=== PATIENT | female | born 1950 | race Caucasian/White ===

== ENCOUNTER 2016-07-17 23:55 | Emergency (ER) | payer OTHER ==
--- NOTE | 2016-07-18 00:37 | EDPHY ---
H & P Stated Complaint: vaginal bleeding Time Seen by Provider: 07/18/16 00:09 HPI/ROS: HPI The patient presents with vaginal bleeding which has been present for the last several hours, since approximately 3:00 p.m.. This began slowly and has been intermittent ever since. It is red blood without any clots. It is recently been associated with mild lower abdominal discomfort. She has not had any recent vaginal discharge or irritation. She is not on any blood thinners or aspirin. She had a total abdominal hysterectomy with bilateral salpingo- oophorectomy 21 years ago. She has no prior history of vaginal bleeding. REVIEW OF SYSTEMS Constitutional: No fever, no chills. Cardiovascular: No chest pain, no palpitations. Respiratory: No cough, no shortness of breath. Gastrointestinal: Mild abdominal discomfort Genitourinary: No hematuria. Musculoskeletal: No back pain. Skin: No rashes. Neurological: No headache. PMHx: Hypertension, history of PE not on anticoagulation Soc Hx: Housed independently PHYSICAL General Appearance: Alert, no distress Eyes: Pupils equal and round no pallor or injection ENT, Mouth: Mucous membranes moist Respiratory: There are no retractions, lungs are clear to auscultation Cardiovascular: Regular rate and rhythm Gastrointestinal: Abdomen is soft and non-tender, no masses, bowel sounds normal Pelvic exam reveals no active bleeding with mild inflammation of the vaginal vault Neurological: A&O, moves all extremities Skin: Warm and dry, no rashes Musculoskeletal: Neck is supple non tender Extremities: symmetrical, full range of motion Psychiatric: Patient is oriented X 3, there is no agitation Source: Patient Exam Limitations: No limitations - Personal History Current Tetanus/Diphtheria Vaccine: Yes Tetanus Vaccine Date: 2010 - Medical/Surgical History Hx Asthma: No Hx Chronic Respiratory Disease: No Hx Diabetes: Yes Hx Cardiac Disease: No Hx Renal Disease: Yes Hx Cirrhosis: No Hx Alcoholism: No Hx HIV/AIDS: No Hx Splenectomy or Spleen Trauma: No Other PMH: porphyria, hypoglycemia, pre-diabetes, polymylasia, GERD, HTN, SOB, CPAP at night, depression, hypothyroidism, thyroid sx, PE's, SDH. - Social History Smoking Status: Former smoker Constitutional: Initial Vital Signs Temperature (C) 36.9 C 07/17/16 23:56 Heart Rate 75 07/17/16 23:56 Respiratory Rate 16 07/17/16 23:56 Blood Pressure 160/104 H 07/17/16 23:56 O2 Sat (%) 98 07/17/16 23:56 O2 Delivery Mode Room Air Allergies/Adverse Reactions: Cephalosporins Allergy (Intermediate, Verified 01/15/16 09:58) Rash Penicillins Allergy (Intermediate, Verified 01/15/16 09:58) Rash atorvastatin Allergy (Verified 01/15/16 09:58) Home Medications: Medication Instructions Recorded Cetirizine [ZyrTEC 10 mg (*)] 10 mg PO DAILY 11/07/15 DULoxetine [Cymbalta 60 MG (*)] 60 mg PO DAILY 11/07/15 Diazepam [Valium 5 MG (*)] 5 mg PO SUTUTH@11/07/15 Hydrochlorothiazide [HCTZ (*)] 12.5 mg PO DAILY 11/07/15 Levothyroxine [Synthroid 88 mcg 88 mcg PO SUTUWETHFRSA@06 11/07/15 (*)] Metoprolol Succinate Xr [Toprol Xl 25 mg PO DAILY PRN 11/07/15 25 mg (*)] Omeprazole [Prilosec 20 mg] 40 mg PO DAILY 11/07/15 Valsartan [Diovan (*)] 160 mg PO DAILY 11/07/15 Cholecalciferol Vit D3 [Vitamin D3 4,000 units PO DAILY 01/15/16 (*)] Herbals/Supplements -Info Only 1 ea PO DAILY 01/15/16 Memantine HCl [Namenda 5 mg (*)] 5 mg PO HS 01/15/16 Vitamin B Complex [B Complex] 1 each PO DAILY 01/15/16 Calcium Carbonate [Oyster Shell 500 mg PO BID 02/08/16 Calcium 500 mg (*)] Fluticasone Hfa 220 Mcg [Flovent 2 puffs IH BID 02/08/16 220 MCG Hfa MDI (*)] LORazepam [Ativan (*)] 0.5 mg PO Q4 PRN 02/08/16 Nitrofurantoin Macrobid [Macrobid] 100 mg PO BID #14 cap 07/18/16 Medical Decision Making Differential Diagnosis: This is a 66-year-old female with history of hypertension, GERD, PE though not on anticoagulation, subdural hemorrhage who presents from home with 1 day of vaginal bleeding. Hemodynamics are stable. Pelvic exam reveals some slightly erythematous mucosa with no active bleeding. Differential diagnosis includes hemorrhagic cystitis, vaginitis, vaginal mass. In the emergency room, UA was checked which does show signs of infection. Given that there is some diagnostic uncertainty, I will treat as urinary tract infection and monitor symptoms. 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 Trichomonas has returned as negative. I am still awaiting [place] and bacterial vaginosis testing. I have a low suspicion for either of these. Because of her lower abdominal discomfort, I have advised her to monitor her symptoms and if she has tenderness or increased pain she should return to the emergency room for a CT scan. I have offered her imaging tonight, however she would like to wait before pursuing this. - Data Points Laboratory Results: Laboratory Results 07/18/16 00:45 07/18/16 00:45 07/18/16 07/18/16 07/18/16 01:00 00:45 00:45 WBC 5.30 10^3/uL 10^3/uL (3.80-9.50) RBC 3.86 10^6/uL L 10^6/uL (4.18-5.33) Hgb 12.6 g/dL g/dL (12.6-16.3) Hct 34.8 % L % (38.0-47.0) MCV 90.2 fL fL (81.5-99.8) MCH 32.6 pg pg (27.9-34.1) MCHC 36.2 g/dL g/dL (32.4-36.7) RDW 12.6 % % (11.5-15.2) Plt Count 188 10^3/uL 10^3/uL (150-400) MPV 10.6 fL fL (8.7-11.7) Neut % (Auto) 38.6 % L % (39.3-74.2) Lymph % (Auto) 48.3 % H % (15.0-45.0) [place] % (Auto) 8.3 % % (4.5-13.0) Eos % (Auto) 3.8 % % (0.6-7.6) Baso % (Auto) 0.8 % % (0.3-1.7) Nucleat RBC Rel Count 0.0 % % (0.0-0.2) Absolute Neuts (auto) 2.05 10^3/uL 10^3/uL (1.70-6.50) Absolute Lymphs (auto) 2.56 10^3/uL 10^3/uL (1.00-3.00) Absolute Monos (auto) 0.44 10^3/uL 10^3/uL (0.30-0.80) Absolute Eos (auto) 0.20 10^3/uL 10^3/uL (0.03-0.40) Absolute Basos (auto) 0.04 10^3/uL 10^3/uL (0.02-0.10) Absolute Nucleated RBC 0.00 10^3/uL 10^3/uL (0-0.01) Immature Gran % 0.2 % % (0.0-1.1) Immature Gran # 0.01 10^3/uL 10^3/uL (0.00-0.10) Sodium 139 mEq/L mEq/L (134-144) Potassium 3.5 mEq/L mEq/L (3.5-5.2) Chloride 107 mEq/L mEq/L (97-110) Carbon Dioxide 20 mEq/l L mEq/l (22-31) Anion Gap 12 mEq/L mEq/L (8-16) BUN 26 mg/dL H mg/dL (7-23) Creatinine 1.1 mg/dL H mg/dL (0.6-1.0) Estimated GFR 50 Glucose 116 mg/dL H mg/dL (70-100) Calcium 9.3 mg/dL mg/dL (8.5-10.4) Total Bilirubin 0.5 mg/dL mg/dL (0.1-1.4) Conjugated Bilirubin 0.4 mg/dL mg/dL (0.0-0.5) Unconjugated Bilirubin 0.1 mg/dL mg/dL (0.0-1.1) AST 32 IU/L IU/L (14-46) ALT 33 IU/L IU/L (9-52) Alkaline Phosphatase 65 IU/L IU/L (38-126) Total Protein 6.3 g/dL g/dL (6.3-8.2) Albumin 4.1 g/dL g/dL (3.5-5.0) Urine Color YELLOW Urine Appearance HAZY Urine pH 5.0 (5.0-7.5) Ur Specific [employer] 1.015 (1.002-1.030) Urine Protein NEGATIVE (NEGATIVE) Urine Ketones NEGATIVE (NEGATIVE) Urine Blood 3+ H (NEGATIVE) Urine Nitrate NEGATIVE (NEGATIVE) Urine Bilirubin NEGATIVE (NEGATIVE) Urine Urobilinogen NEGATIVE EU EU (0.2-1.0) Ur Leukocyte Esterase 3+ H (NEGATIVE) Urine RBC 3-5 /hpf H /hpf (0-3) Urine WBC 15-25 /hpf H /hpf (0-3) Ur Epithelial Cells TRACE /lpf /lpf (NONE-1+) Urine Bacteria 1+ /hpf H /hpf (NONE SEEN) Hyaline Casts 1-5 /lpf /lpf (0-1) Urine Mucus TRACE /lpf /lpf (NONE-1+) Urine Glucose NEGATIVE (NEGATIVE) Trichomonas (Wet Prep) [place] species DNA C.trachomatis RNA (TMA) Gardnerella DNA Probe N.gonorrhoeae RNA (TMA) Trichomonas DNA Probe 07/18/16 07/18/16 00:30 00:30 WBC RBC Hgb Hct MCV MCH MCHC RDW Plt Count MPV Neut % (Auto) Lymph % (Auto) [place] % (Auto) Eos % (Auto) Baso % (Auto) Nucleat RBC Rel Count Absolute Neuts (auto) Absolute Lymphs (auto) Absolute Monos (auto) Absolute Eos (auto) Absolute Basos (auto) Absolute Nucleated RBC Immature Gran % Immature Gran # Sodium Potassium Chloride Carbon Dioxide Anion Gap BUN Creatinine Estimated GFR Glucose Calcium Total Bilirubin Conjugated Bilirubin Unconjugated Bilirubin AST ALT Alkaline Phosphatase Total Protein Albumin Urine Color Urine Appearance Urine pH Ur Specific [employer] Urine Protein Urine Ketones Urine Blood Urine Nitrate Urine Bilirubin Urine Urobilinogen Ur Leukocyte Esterase Urine RBC Urine WBC Ur Epithelial Cells Urine Bacteria Hyaline Casts Urine Mucus Urine Glucose Trichomonas (Wet Prep) NO TRICHOMONAS [place] species DNA Pending C.trachomatis RNA (TMA) Pending Gardnerella DNA Probe Pending N.gonorrhoeae RNA (TMA) Pending Trichomonas DNA Probe Pending Departure - Departure Disposition: Home, Routine, Self-Care Clinical Impression: Vaginal bleeding UTI (urinary tract infection) Qualifiers: Urinary tract infection type: acute cystitis Hematuria presence: with hematuria Qualified Code(s): N30.01 - Acute cystitis with hematuria Condition: Good Instructions: Urinary Tract Infection in Women (ED) Additional Instructions: Please return to the emergency room if your worse in any way. If you continue to have any pain in her abdomen you should return for recheck. Please take the antibiotic. If your vaginal bleeding continues next week, despite the antibiotic, please call for an appointment with the OBGYN I have referred you to. Referrals: Leonarda Santana MD [Primary Care Provider] - As per Instructions Rita Singh MD [Medical Doctor] - As per Instructions Prescriptions: Nitrofurantoin Macrobid [Macrobid] 100 mg PO BID #14 cap
[2016-07-18 01:03] VITALS: O2SAT 95
[2016-07-18 01:04] LABS: % IMMATURE GRANULYOCYTES 0.2 % (0.0-1.1); ABSOLUTE IMMATURE GRANULOCYTES 0.01 10^3/uL (0.00-0.10); ADD DIFF? NO; ADD MORPH? NO; ADD SCAN? NO; ATYPICAL LYMPHOCYTE FLAG 10 (0-99); FRAGMENT RBC FLAG 0 (0-99); HEMATOCRIT 34.8 % (38.0-47.0); HEMOGLOBIN 12.6 g/dL (12.6-16.3); LEFT SHIFT FLG 0 (0-99); LIPEMIA HEMOLYSIS FLAG 90 (0-99); MEAN CELL HEMOGLOBIN 32.6 pg (27.9-34.1); MEAN CELL HEMOGLOBIN CONCENTR. 36.2 g/dL (32.4-36.7); MEAN CELL VOLUME 90.2 fL (81.5-99.8); MEAN PLATELET VOLUME 10.6 fL (8.7-11.7); PLATELET CLUMPS FLAG 40 (0-99); PLATELET COUNT 188 10^3/uL (150-400); RED BLOOD CELL COUNT 3.86 10^6/uL (4.18-5.33); RED CELL DISTRIBUTION WIDTH 12.6 % (11.5-15.2)
[2016-07-18 01:10] LABS: COLOR YELLOW; LEUKOCYTE ESTERASE,URINE 3+ (NEGATIVE); NITRITE,URINE NEGATIVE (NEGATIVE)
[2016-07-18 01:21] LABS: BACTERIA 1+ /hpf (NONE SEEN); MUCUS TRACE /lpf (NONE-1+); WBC,URINE 15-25 /hpf (0-3)
[2016-07-18 01:22] LABS: ALANINE AMINOTRANSFERASE 33 IU/L (9-52); ALBUMIN 4.1 g/dL (3.5-5.0); ALKALINE PHOSPHATASE 65 IU/L (38-126); ANION GAP 12 mEq/L (8-16); ASPARTATE AMINOTRANSFERASE 32 IU/L (14-46); BILIRUBIN,TOTAL 0.5 mg/dL (0.1-1.4); BILIRUBIN-CONJUGATED 0.4 mg/dL (0.0-0.5); BILIRUBIN-UNCONJUGATED 0.1 mg/dL (0.0-1.1); CALCIUM 9.3 mg/dL (8.5-10.4); CARBON DIOXIDE 20 mEq/l (22-31); CHLORIDE 107 mEq/L (97-110); CREATININE 1.1 mg/dL (0.6-1.0); GLOMERULAR FILTRATION RATE 50; GLUCOSE 116 mg/dL (70-100); POTASSIUM 3.5 mEq/L (3.5-5.2); SODIUM 139 mEq/L (134-144); TOTAL PROTEIN 6.3 g/dL (6.3-8.2)
[2016-07-18] MEDS ORDERED: NITROFURANTOIN MACROBID 100 MG CAP PO ONE (02:00)
[2016-07-18 02:09] VITALS: BP 131/71; PULSE 65; RESP 18; TEMP 98.6
[2016-07-20 14:13] LABS: CHLAMYDIA AMPLIFICATION GENPRB NEGATIVE (NEGATIVE)
== END 2016-07-18 02:08 | disposition home or self-care (01) ==
DX: N93.9 Abnormal uterine and vaginal bleeding, unspecified (principal); N30.01 Acute cystitis with hematuria; B96.89 Other specified bacterial agents as the cause of diseases classified elsewhere; I10 Essential (primary) hypertension; Z87.891 Personal history of nicotine dependence

== ENCOUNTER → 2016-08-26 | Outpatient (CLI) | payer OTHER | LOC: FIMAGING 11:17 | PROVIDERS: ATTEND Internal Medicine | DX: R51 Headache (principal); I10 Essential (primary) hypertension ==

== ENCOUNTER → 2016-10-28 | Outpatient (CLI) | payer OTHER | LOC: FIMAGING 08:38 | PROVIDERS: ATTEND Internal Medicine | DX: M46.92 Unspecified inflammatory spondylopathy, cervical region (principal); M50.321 Other cervical disc degeneration at C4-C5 level; G58.9 Mononeuropathy, unspecified ==

== ENCOUNTER → 2016-11-25 | Outpatient (CLI) | payer OTHER ==
--- NOTE | 2016-11-26 05:09 | CPEEG ---
[f rep st] ELECTROENCEPHALOGRAM DATE OF STUDY: 11/25/2016 INTERPRETATION: This EEG contains a mild degree of focal slowing over the bitemporal head regions, m aximal left. These findings are consistent with a mild focal disturbance of cerebral function in the se regions. There were no potentially epileptogenic abnormalities present during the awake or sleep recordings. REPORT: This EEG contains 10 Hz alpha activity over the posterior head regions. There was no abnorm al activation at rest, during photic stimulation or hyperventilation. There was a mild degree of foc al slowing over the bitemporal head regions composed of intermittent [id number] amplitude theta frequency activity, maximal left. The patient became drowsy and fell asleep during the study. Ther e was no abnormal activation during drowsiness, sleep, or during times of arousal. /[id number]/MODL
== END ==
LOC: FCPNEURO 12:55
PROVIDERS: ATTEND Psychiatry & Neurology Neurology
DX: R29.818 Other symptoms and signs involving the nervous system (principal); R53.1 Weakness; R09.89 Other specified symptoms and signs involving the circulatory and respiratory systems

== ENCOUNTER 2016-11-26 10:18 | Observation (INO) | payer OTHER ==
--- NOTE | 2016-11-26 10:41 | CPEKG ---
Heart Rate: 70 RR Interval: 857 QRSD Interval: 84 QT Interval: 464 QTC Interval: 501 QRS [place]: 8 T Wave [place]: 45 EKG Severity - ABNORMAL ECG - EKG Impression: Sinus EKG Impression: BORDERLINE PROLONGED QT INTERVAL Electronically Signed By: Kalina Mcdowell 26-Nov-2016 15:48:26
[2016-11-26] MEDS ORDERED: LORazepam 2 MG/ML INJ IVP ONE (10:53)
[2016-11-26 10:57] LABS: % IMMATURE GRANULYOCYTES 0.4 % (0.0-1.1); ABSOLUTE IMMATURE GRANULOCYTES 0.02 10^3/uL (0.00-0.10); ADD DIFF? NO; ADD MORPH? NO; ADD SCAN? NO; ATYPICAL LYMPHOCYTE FLAG 0 (0-99); FRAGMENT RBC FLAG 0 (0-99); HEMATOCRIT 38.5 % (38.0-47.0); LEFT SHIFT FLG 0 (0-99); LIPEMIA HEMOLYSIS FLAG 90 (0-99); MEAN CELL HEMOGLOBIN CONCENTR. 36.4 g/dL (32.4-36.7); MEAN CELL VOLUME 90.8 fL (81.5-99.8); MEAN PLATELET VOLUME 11.3 fL (8.7-11.7); PLATELET CLUMPS FLAG 0 (0-99); PLATELET COUNT 166 10^3/uL (150-400); RED BLOOD CELL COUNT 4.24 10^6/uL (4.18-5.33); RED CELL DISTRIBUTION WIDTH 12.3 % (11.5-15.2)
--- NOTE | 2016-11-26 10:58 | EDPHY ---
HPI/HX/ROS/PE/MDM Narrative: CHIEF COMPLAINT: Shortness of breath HISTORY OF PRESENT ILLNESS: This patient is a non-anticoagulated 66 year old female with history of pulmonary embolism complaining of shortness of breath onset this morning at 6: 00am. She has had difficulty with dyspnea intermittently all summer, and becomes very short of breath with exertion. 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 Camargo recommended she present to the emergency department for evaluation of her dyspnea. She endorses some chest pain during her echo, but states the echo was normal. She endorses a bad headache. No fever, chills, vomiting, diarrhea, urinary complaints, headache, lightheadedness. REVIEW OF SYSTEMS: Aside from elements discussed in the HPI, a comprehensive 10-point review of systems was reviewed and is negative. PAST MEDICAL HISTORY: PE 05/2014. Cerebral hemorrhages 11/2014 secondary to blood thinners. SOCIAL HISTORY: Lives in [place]. . Primary care physician: Dr. Santana. Neurologist: Dr. Feliz. Retired. Lives in [place]. VITAL SIGNS: Reviewed by me. LOGISTICS OPERATIONS MANAGER 160/79 GENERAL: Well-developed, well-nourished, resting comfortably in no respiratory distress. HEENT: Atraumatic. Eyes: [place]. No icterus, no injection. Mouth: moist mucous membranes. No erythema or lesions. Neck: supple with no adenopathy. LUNGS: Tachypneic. Clear to auscultation bilaterally, no wheezes, rhonchi or rales. CARDIAC: Regular rate and rhythm, no rubs, murmurs or gallops. ABDOMEN: Soft, nontender, nondistended, bowel sounds normal. BACK: No CVA tenderness. EXTREMITIES: No trauma. No edema. Range of motion is normal throughout. NEURO: Alert and oriented. Mild left leg and left hand weakness. SKIN: Warm and dry, no rash. PSYCHIATRIC: Normal mentation, no agitation. ED Course: 66 year old female with history of pulmonary embolism and cerebral hemorrhages presents with tachypnea. Some left leg and left hand weakness noted on exam. Pupils are equal and reactive bilaterally. Plan for Istat, CT head, CTA, labs including CBC, BMP, Troponin, liver, lipase. Administered 1mg IV Ativan for anxiety relief. Labs unremarkable. CTA negative for pulmonary embolism. 13:[address] Hurtado, radiologist. CT head negative for acute processes. On reassessment, the patient's reports her dyspnea has improved. Indeed, she is no longer visibly as tachypneic as she had been previously. However, she reports that she is continuing to have vague anterior chest discomfort. Patient has had cardiac evaluations in the past but the last stress test was in 2013. Spoke with Dr. Santana, the patient's primary care physician. She has had similar episodes of tachypnea and which may be cause by some autonomic instability. She has had recurrent syncopal episodes for many years, but reports increasing episodes of syncope over the last 3 weeks. It is unclear to me what exactly is the cause of the patient's symptom complex. In discussing her case with her primary care physician, Dr. Santana, many of the patient's presenting complaints today have a chronic component. However, her last cardiac evaluation for coronary artery disease was in 2013. 14:00 Plan to admit for further evaluation of the patient's tachypnea and chest pain. Spoke with hospitalist service. Dr. Dong accepts admission. MDM: After history and physical examination, the differential for chest pain was considered, including but not limited to, myocardial ischemia, acute coronary syndrome, pulmonary embolus, chest wall pain, pleural inflammation and pulmonary infectious causes. Differential diagnosis for the patient's shortness of breath was considered including but not limited to pulmonary infectious processes, COPD exacerbation, pulmonary emboli, pulmonary edema, congestive heart failure, and cardiac causes. - Data Points Imaging Results: Imaging Impressions Chest/Thorax CTA 11/26/16 10:52 Impression: No pulmonary embolus to the segmental level. Dr. Joshi discussed these findings by telephone with Kalina Mcdowell MD at 11/26 13:04. Head CT 11/26/16 10:52 Impression: No acute intracranial findings. Findings discussed with Kalina Mcdowell MD 11/26/2016 at 13:04. Imaging: Discussed imaging studies w/ call center representative Radiologist Laboratory Results: Laboratory Results 11/26/16 10:25 11/26/16 10:25 11/26/16 11/26/16 11/26/16 10:51 10:25 10:25 WBC 5.35 10^3/uL 10^3/uL (3.80-9.50) RBC 4.24 10^6/uL 10^6/uL (4.18-5.33) Hgb 14.0 g/dL g/dL (12.6-16.3) POC Hgb 13.3 gm/dL gm/dL (12.6-16.3) Hct 38.5 % % (38.0-47.0) POC Hct 39 % % (38-47) MCV 90.8 fL fL (81.5-99.8) MCH 33.0 pg pg (27.9-34.1) MCHC 36.4 g/dL g/dL (32.4-36.7) RDW 12.3 % % (11.5-15.2) Plt Count 166 10^3/uL 10^3/uL (150-400) MPV 11.3 fL fL (8.7-11.7) Neut % (Auto) 39.7 % % (39.3-74.2) Lymph % (Auto) 50.3 % H % (15.0-45.0) [place] % (Auto) 5.6 % % (4.5-13.0) Eos % (Auto) 3.4 % % (0.6-7.6) Baso % (Auto) 0.6 % % (0.3-1.7) Nucleat RBC Rel Count 0.0 % % (0.0-0.2) Absolute Neuts (auto) 2.13 10^3/uL 10^3/uL (1.70-6.50) Absolute Lymphs (auto) 2.69 10^3/uL 10^3/uL (1.00-3.00) Absolute Monos (auto) 0.30 10^3/uL 10^3/uL (0.30-0.80) Absolute Eos (auto) 0.18 10^3/uL 10^3/uL (0.03-0.40) Absolute Basos (auto) 0.03 10^3/uL 10^3/uL (0.02-0.10) Absolute Nucleated RBC 0.00 10^3/uL 10^3/uL (0-0.01) Immature Gran % 0.4 % % (0.0-1.1) Immature Gran # 0.02 10^3/uL 10^3/uL (0.00-0.10) POC Sodium 142 mEq/L mEq/L (134-144) Sodium 140 mEq/L mEq/L (134-144) POC Potassium 3.2 mEq/L L mEq/L (3.3-5.0) Potassium 3.5 mEq/L mEq/L (3.5-5.2) POC Chloride 109 mEq/L mEq/L (97-110) Chloride 106 mEq/L mEq/L (97-110) Carbon Dioxide 18 mEq/l L mEq/l (22-31) Anion Gap 16 mEq/L mEq/L (8-16) POC BUN 17 mg/dL mg/dL (7-23) BUN 17 mg/dL mg/dL (7-23) Creatinine 1.0 mg/dL mg/dL (0.6-1.0) POC Creatinine 1.1 mg/dL H mg/dL (0.6-1.0) Estimated GFR 55 Glucose 96 mg/dL mg/dL (70-100) POC Glucose 103 mg/dL H mg/dL (70-100) Calcium 9.9 mg/dL mg/dL (8.5-10.4) Total Bilirubin 1.0 mg/dL mg/dL (0.1-1.4) Conjugated Bilirubin 0.4 mg/dL mg/dL (0.0-0.5) Unconjugated Bilirubin 0.6 mg/dL mg/dL (0.0-1.1) AST 31 IU/L IU/L (14-46) ALT 29 IU/L IU/L (9-52) Alkaline Phosphatase 72 IU/L IU/L (38-126) Troponin I < 0.012 ng/mL ng/mL (0.000-0.034) Total Protein 7.2 g/dL g/dL (6.3-8.2) Albumin 4.7 g/dL g/dL (3.5-5.0) Lipase 132 IU/L IU/L (23-300) Medications Given: Discontinued Medications Lorazepam (Ativan Injection) 1 mg IVP EDNOW ONE Stop: 11/26/16 10:54 Last Admin: 11/26/16 10:59 Dose: 1 mg Potassium Chloride (Klor-Con) 10 meq PO ONCE ONE Stop: 11/26/16 14:38 Last Admin: 11/26/16 16:26 Dose: 10 meq Point of Care Test Results: 11/26/16 10:51 POC Sodium 142 POC Potassium 3.2 L POC Chloride 109 POC BUN 17 POC Creatinine 1.1 H POC Glucose 103 H General Time Seen by Provider: 11/26/16 10:37 Initial Vital Signs: Initial Vital Signs Temperature (C) 36.6 C 11/26/16 10:18 Heart Rate 72 11/26/16 10:18 Respiratory Rate 31 H 11/26/16 10:18 Blood Pressure 168/80 H 11/26/16 10:18 O2 Sat (%) 100 11/26/16 10:18 O2 Delivery Mode Room Air O2 (L/minute) 2 Allergies/Adverse Reactions: Cephalosporins Allergy (Intermediate, Verified 11/26/16 10:26) Rash Penicillins Allergy (Intermediate, Verified 11/26/16 10:26) Rash atorvastatin Allergy (Verified 11/26/16 10:26) Home Medications: Medication Instructions Recorded DULoxetine [Cymbalta 60 MG (*)] 60 mg PO DAILY 11/07/15 Diazepam [Valium 5 MG (*)] 5 mg PO SUTUTH@11/07/15 Hydrochlorothiazide [HCTZ (*)] 12.5 mg PO DAILY 11/07/15 Levothyroxine [Synthroid 88 mcg 88 mcg PO SUTUWETHFRSA@11/07/15 (*)] Metoprolol Succinate Xr [Toprol Xl 25 mg PO DAILY PRN 11/07/15 25 mg (*)] Omeprazole [Prilosec 20 mg] 40 mg PO DAILY@11/07/15 Valsartan [Diovan (*)] 160 mg PO DAILY@11/07/15 Cholecalciferol Vit D3 [Vitamin D3 4,000 units PO DAILY 01/15/16 (*)] Herbals/Supplements -Info Only 1 ea PO DAILY 01/15/16 Memantine HCl [Namenda 5 mg (*)] 5 mg PO HS 01/15/16 Vitamin B Complex [B Complex] 1 each PO DAILY@01/15/16 Calcium Carbonate [Oyster Shell 500 mg PO BID 02/08/16 Calcium 500 mg (*)] Fluticasone Hfa 220 Mcg [Flovent 2 puffs IH BID 02/08/16 220 MCG Hfa MDI (*)] LORazepam [Ativan (*)] 0.5 mg PO Q4 PRN 02/08/16 Ibuprofen [Motrin (*)] 200 mg PO DAILY PRN 11/26/16 Midodrine HCl 2.5 mg PO DAILY PRN 11/26/16 Departure - Departure Disposition: Home, Routine, Self-Care Clinical Impression: Tachypnea, Anxiety Chest pain Qualifiers: Chest pain type: unspecified Qualified Code(s): R07.9 - Chest pain, unspecified Condition: Good Report Scribed for: Kalina Mcdowell Report Scribed by: Carmel Carranza Date of Report: 11/26/16 Time of Report: 10:59 Physician Review and Approval Statement: Portions of this note were transcribed by a biomedical equipment technician. I personally performed a history, physical exam, medical decision making, and confirmed accuracy of information the transcribed note.
[2016-11-26 11:03] LABS: ALANINE AMINOTRANSFERASE 29 IU/L (9-52); ALBUMIN 4.7 g/dL (3.5-5.0); ALKALINE PHOSPHATASE 72 IU/L (38-126); ANION GAP 16 mEq/L (8-16); ASPARTATE AMINOTRANSFERASE 31 IU/L (14-46); BILIRUBIN-CONJUGATED 0.4 mg/dL (0.0-0.5); BILIRUBIN-UNCONJUGATED 0.6 mg/dL (0.0-1.1); CALCIUM 9.9 mg/dL (8.5-10.4); CARBON DIOXIDE 18 mEq/l (22-31); CHLORIDE 106 mEq/L (97-110); GLOMERULAR FILTRATION RATE 55; GLUCOSE 96 mg/dL (70-100); POTASSIUM 3.5 mEq/L (3.5-5.2); SODIUM 140 mEq/L (134-144); TOTAL PROTEIN 7.2 g/dL (6.3-8.2)
[2016-11-26 11:15] LABS: TROPONIN I < 0.012 ng/mL (0.000-0.034)
[2016-11-26] MEDS ORDERED: IOPAMIDOL (ISOVUE 370) 100 ML BTL IV ONE (11:25)
[2016-11-26] MEDS ORDERED: ONDANSETRON 4 MG/2 ML VIAL IVP PRN (14:29)
[2016-11-26] MEDS ORDERED: ONDANSETRON DISINTEGRATING 4 MG TAB PO PRN (14:29)
[2016-11-26] MEDS ORDERED: LORazepam 2 MG/ML INJ IVP PRN (14:29)
[2016-11-26] MEDS ORDERED: IBUPROFEN 200 MG TAB PO PRN (14:34)
[2016-11-26] MEDS ORDERED: MIDODRINE HCL 2.5 MG PO PRN (14:34)
[2016-11-26] MEDS ORDERED: LORazepam 0.5 MG TAB PO PRN (14:34)
[2016-11-26] MEDS ORDERED: METOPROLOL SUCCINATE XR 25 MG TAB PO PRN (14:34)
[2016-11-26] MEDS ORDERED: POTASSIUM CL 10 MEQ TAB PO ONE (14:37)
--- NOTE | 2016-11-26 15:51 | GHP ---
[f rep st] HISTORY AND PHYSICAL DATE OF ADMISSION: 11/26/2016 CHIEF COMPLAINT: Multiple complaints. HISTORY OF PRESENT ILLNESS: This is a 66-year-old female who was sent to the ED from Dr. Camargo's [facility] for tachypnea. She has a complicated history confirmed by Dr. Santana. I will detail this later. Recent history notable for palpitations. She had a Holter monitor which was reviewed yesterday by Waqar Rosa with no significant findings. There were some mild findings, unclear if they correlated to her palpitations. She was getting an echocardiogram today in Dr. Camargo's office. She was sent to [facility] ED due to tachypnea. She also notes that she has had intermittent sternal pain which has been exte nsively worked up, although she has not had a stress test. She also has a cough. Tachypnea has been going on all summer. Her functional capacity has decreased since this started. Her chest pain is i ntermittent. Does not seem to be exertional. Per Dr. Santana she was thought to have some autonomic instability. She was treated with antihyperte nsives as well as midodrine for this. Dr. Santana thinks that this may be the etiology of her tachyp césar. For these issues she had seen Pulmonology, Neurology, Cardiology, and GI. She had an EGD by Dr Evelyne Cortes due to this chest pain. She was admitted here for syncope as well as chest pain in the last approximately 6-9 months. She has not had a stress test since 2013. PAST MEDICAL/PAST SURGICAL HISTORY: 1. Subdural hemorrhage due to anticoagulation. 2. PE in 2014, off anticoagulation due to the above. 3. Hypertension. 4. Hypothyroid. 5. Hypoglycemia. 6. History of chronic headaches. MEDICATIONS: Please see medication reconciliation. ALLERGIES: Cephalosporins, penicillin, atorvastatin. FAMILY HISTORY: She is adopted. SOCIAL HISTORY: She lives up in [place]. She occasionally drinks alcohol. She does not smoke. REVIEW OF SYSTEMS: A 10-point review of systems is conducted and is negative except per HPI. PHYSICAL EXAM: VITAL SIGNS: Blood pressure 165/79, heart rate 70, respiration rate 16, saturating 1 00% on room air. Temperature is 36.7. GENERAL: The patient is a pleasant female who does appear qu ite tachypneic. She is otherwise in no acute distress. HEENT: Shows her to be normocephalic, atrau matic. CARDIOVASCULAR: Shows regular rate and rhythm. No murmurs, rubs, or gallops. PULMONARY: S hows tachypnea. Her oxygen saturation is 100%. There are no adventitious sounds on her auscultation . ABDOMEN: Soft. She is mildly tender to palpation in the right lower quadrant. SKIN: No rash. : Shows no [place]. NEUROLOGIC: Shows her to be alert and oriented x3. She is moving all extremit ies. PSYCHIATRIC: Shows her to be anxious. LABS: Her bicarb is 18, otherwise LFTs, troponin, basic metabolic panel are normal. CBC is normal. DATA: 1. I have discussed this with Dr. Mcdowell. 2. I reviewed her head CT. This shows nothing acute. 3. I personally viewed and interpreted her EKG. This shows I believe this is sinus rhythm. It is r ead as AFib and P waves are difficult to see. There is nothing acute on here, though. IMPRESSION/PLAN: 1. Tachypnea: She also has a respiratory alkalosis. I suspect that this is anxiety related. [facility] physicians also suspect an autonomic issue. She has seen Neurology for this. I do not believe that there is any firm diagnosis. I have given her a 2nd dose of Ativan to see if this helps her ta chypnea. Apparently she was more comfortable after her 1st dose. 2. Intermittent chest pain: It sounds very atypical for cardiac. She has a CT angio which I believ e is negative, though there is no official report up. Given her 3 admissions here in the last year, I think it is reasonable to get a stress test. She has not had one. I have ordered this for tomorro w. Will also trend her troponins and monitor her on telemetry. 3. History of a pulmonary embolus off anticoagulation: I suspect her CT angiogram is negative, [facility] I will follow up on this. 4. History of a subdural hemorrhage, not on anticoagulation: Would be very careful with any anticoa gulation. 5. Hypertension: Will continue her antihypertensives. 6. Questionable autonomic instability: I will continue her midodrine for now. /[id number]/MODL
[2016-11-26] MEDS ORDERED: MIDODRINE HCL 5 MG TAB PO PRN (16:48)
[2016-11-26] MEDS ORDERED: MEMANTINE HCL 5 MG TAB PO SCH (21:00)
[2016-11-26] MEDS ORDERED: DIAZEPAM 5 MG TAB PO SCH (21:00)
[2016-11-26] MEDS: FLUTICASONE HFA 220 MCG MDI IH SCH (21:34)
[2016-11-26] MEDS: CALCIUM CARBONATE 500 MG TAB PO SCH (21:55)
[2016-11-27] MEDS: ACETAMINOPHEN 325 MG TAB PO PRN ×2 (04:11→13:23)
[2016-11-27 05:01] LABS: % IMMATURE GRANULYOCYTES 0.3 % (0.0-1.1); ABSOLUTE IMMATURE GRANULOCYTES 0.01 10^3/uL (0.00-0.10); ABSOLUTE NRBC COUNT 0.02 10^3/uL (0-0.01); ADD DIFF? NO; ADD MORPH? NO; ADD SCAN? NO; ATYPICAL LYMPHOCYTE FLAG 10 (0-99); FRAGMENT RBC FLAG 0 (0-99); HEMATOCRIT 34.2 % (38.0-47.0); LEFT SHIFT FLG 0 (0-99); LIPEMIA HEMOLYSIS FLAG 90 (0-99); MEAN CELL HEMOGLOBIN CONCENTR. 35.1 g/dL (32.4-36.7); MEAN PLATELET VOLUME 11.1 fL (8.7-11.7); NRBC-AUTO% 0.5 % (0.0-0.2); PLATELET CLUMPS FLAG 10 (0-99); PLATELET COUNT 134 10^3/uL (150-400); RED BLOOD CELL COUNT 3.64 10^6/uL (4.18-5.33); RED CELL DISTRIBUTION WIDTH 12.8 % (11.5-15.2)
[2016-11-27 05:16] LABS: ANION GAP 10 mEq/L (8-16); CALCIUM 8.7 mg/dL (8.5-10.4); CARBON DIOXIDE 22 mEq/l (22-31); CHLORIDE 110 mEq/L (97-110); GLOMERULAR FILTRATION RATE 55; GLUCOSE 91 mg/dL (70-100); POTASSIUM 3.5 mEq/L (3.5-5.2); SODIUM 142 mEq/L (134-144)
[2016-11-27] MEDS: oxyCODONE IR 5 MG TAB PO PRN ×2 (05:46→11:57)
[2016-11-27] MEDS ORDERED: LEVOTHYROXINE 88 MCG TAB PO SCH (06:00)
[2016-11-27] MEDS ORDERED: VALSARTAN 160 MG TAB PO SCH (08:00)
[2016-11-27] MEDS ORDERED: VITAMIN B COMPLEX 1 EA CAP/TAB PO SCH ×2 (08:00)
[2016-11-27] MEDS ORDERED: NON-FORMULARY NEW DRUG (Omeprazole [Prilosec 20 Mg] 40 MG) PO SCH (08:00)
[2016-11-27] MEDS ORDERED: PANTOPRAZOLE SODIUM 40 MG TAB PO SCH (08:00)
[2016-11-27] MEDS: CALCIUM CARBONATE 500 MG TAB PO SCH (08:34)
[2016-11-27] MEDS ORDERED: HYDROCHLOROTHIAZIDE 12.5 MG CAP PO SCH (09:00)
[2016-11-27] MEDS ORDERED: DULoxetine 60 MG CAP PO SCH (09:00)
[2016-11-27] MEDS ORDERED: CHOLECALCIFEROL VIT D3 1,000 UNITS TAB PO SCH (09:00)
[2016-11-27] MEDS: FLUTICASONE HFA 220 MCG MDI IH SCH (09:52)
[2016-11-27] MEDS ORDERED: REGADENOSON 0.4 MG/5 ML SYR IVP ONE (10:58)
--- NOTE | 2016-11-27 11:06 | CPEKG ---
Heart Rate: 72 RR Interval: 833 P-R Interval: 180 QRSD Interval: 84 QT Interval: 440 QTC Interval: 482 P [place]: 65 QRS [place]: 9 T Wave [place]: 49 EKG Severity - NORMAL ECG - EKG Impression: SINUS RHYTHM EKG Impression: PROLONGED QT Electronically Signed By: Maribeth Bauman 27-Nov-2016 21:18:51
--- NOTE | 2016-11-27 11:53 | CPR ---
[f rep st] NONINVASIVE CARDIAC PROCEDURE REPORT DATE OF PROCEDURE: 11/27/2016 PROCEDURE PERFORMED: Lexiscan nuclear stress test. INDICATIONS: The patient is a 66-year-old female, who was sent over to the hospital from her cardiol ogist's office, Dr. Migel Camargo, for shortness of breath. She has a history of pulmonary embolus, but has become more short of breath over the last few weeks. She has also been complaining of intermitt ent chest discomfort for the past few months. DESCRIPTION OF PROCEDURE: Consent was obtained and the patient was placed on continuous telemetry. Her resting EKG revealed normal sinus rhythm with a heart rate of 72. This was a nonischemic EKG. T he patient was unable to walk on a treadmill and therefore was infused with Lexiscan. She complained of increased shortness of breath and throat tightening with the infusion. She remained in normal si nus rhythm without any significant ST-T wave changes. She was given caffeine in the recovery phase, with an improvement in her symptoms. Her blood pressure at rest was 140/90 and dropped with the infu miles to 126/88. Three minutes into recovery, her blood pressure had recovered. PLAN: Await nuclear images. /[id number]/MODL
[2016-11-27 12:33] VITALS: BP 158/91; PULSE 75; RESP 20; TEMP 97.7
[2016-11-27 14:04] VITALS: O2SAT 92
--- NOTE | 2016-11-27 14:28 | GDS ---
[f rep st] DISCHARGE SUMMARY DISCHARGE DIAGNOSES: 1. Tachypnea, probably related to anxiety. 2. Atypical chest pain. 3. Slightly positive stress test. 4. History of pulmonary embolism. 5. Hypertension. 6. Hypothyroidism. HISTORY: A 66-year-old female, who was sent in to the emergency department for tachypnea. HOSPITAL COURSE: Patient was admitted. She was not hypoxic. She had a CT scan of her chest to rule out PE, which was negative. Her cardiac enzymes were negative x3, and then she had a stress test in the morning, which did show a small area of possible septal ischemia. The case was discussed with Abhijit Camargo, who felt that this was not enough to warrant an angiogram. Her symptoms have improved, and she will be discharged home, with followup with her primary care doctor. /[id number]/MODL
== END 2016-11-27 14:42 | disposition home or self-care (01) ==
LOC: EDUNIT# → F2W 16:43
PROVIDERS: ADMIT Student in an Organized Health Care Education/Training Program; ATTEND Internal Medicine
DX: R06.82 Tachypnea, not elsewhere classified (principal); F41.9 Anxiety disorder, unspecified; R07.9 Chest pain, unspecified; R94.39 Abnormal result of other cardiovascular function study; R00.2 Palpitations; I10 Essential (primary) hypertension; E03.9 Hypothyroidism, unspecified; R20.9 Unspecified disturbances of skin sensation; G47.33 Obstructive sleep apnea (adult) (pediatric); Z87.891 Personal history of nicotine dependence; Z86.711 Personal history of pulmonary embolism; Z79.01 Long term (current) use of anticoagulants
CPT/HCPCS: 70450; 71275; 78452; 93005; 93017; A9500; G0378; J2060; J2785; Q9967; 82947-QW; 96374

== ENCOUNTER → 2016-12-07 | Outpatient (CLI) | payer OTHER ==
[~2016-12-07] MED LIST: GADOBUTROL 10 ML VIAL IVP ONE; IOPAMIDOL (ISOVUE 370) 100 ML BTL IV ONE
== END ==
LOC: FIMAGING 07:41
PROVIDERS: ATTEND Psychiatry & Neurology Neurology
DX: R29.818 Other symptoms and signs involving the nervous system (principal); R53.1 Weakness; R51 Headache
CPT/HCPCS: 70496; 70498; 70553; A9585; Q9967

== ENCOUNTER → 2016-12-23 | Outpatient (CLI) | payer OTHER | LOC: BMCIMAGING 10:20 | PROVIDERS: ATTEND Orthopaedic Surgery | DX: M16.0 Bilateral primary osteoarthritis of hip (principal); M46.1 Sacroiliitis, not elsewhere classified ==

== ENCOUNTER 2017-01-21 10:37 | Emergency (ER) | payer OTHER ==
--- NOTE | 2017-01-21 11:09 | EDPHY ---
H & P Time Seen by Provider: 01/21/17 10:43 HPI/ROS: CHIEF COMPLAINT: Shortness of breath, chest pain HISTORY OF PRESENT ILLNESS: 66-year-old female with a history of pulmonary embolism and hypertension presents with shortness of breath and chest pain. She has chronic tachypnea, without clear etiology. However, over the last 2 weeks, she has had increasing shortness of breath, associated with constant upper right chest pressure. The chest pressure is moderate and constant, without alleviating or aggravating factors. She has a history of pulmonary embolism in 2015. She developed intracranial hemorrhage while on anticoagulants and was taken off the anticoagulant. She is no longer taking aspirin or other anticoagulants. No filter was placed. She recently wore a Holter monitor, which revealed paroxysmal atrial fibrillation. However the atrial fibrillation is not clearly associated with the recent increase in shortness of breath. She is scheduled to see Dr. Robles for consideration of ablation. Over the past 2 years she has had persistent tachypnea, without clear explanation. She does not feel anxious. She was previously prescribed Ativan, but she has not taken it because she does not feel anxious. REVIEW OF SYSTEMS: Constitutional: No fever, no chills Eyes: No visual changes ENT: No sore throat Respiratory: No cough Gastrointestinal: No nausea, no vomiting, no abdominal pain Genitourinary: no dysuria Musculoskeletal: No leg pain or swelling Skin: No rash Neurological: No headache, no numbness, no weakness Psychiatric: No depression Past Medical/Surgical History: Pulmonary embolism Hypertension Paroxysmal atrial fibrillation Social History: Lives at [address] in the [facility] International Logistics Coordinator: Dr. Camargo Smoking Status: Former smoker Physical Exam: General Appearance: Alert, pleasant Eyes: Pupils equal and round, no conjunctival pallor or injection ENT, Mouth: Mucous membranes moist Neck: Normal inspection Respiratory: tachypnea, audible breathing, lungs are clear to auscultation Cardiovascular: Regular tachycardia Gastrointestinal: Abdomen is soft and nontender Neurological: A&O, nonfocal, normal gait Skin: Warm and dry, no rash Extremities: Nontender, no pedal edema Psychiatric: Mood and affect normal Constitutional: Initial Vital Signs Heart Rate 100 01/21/17 10:39 Respiratory Rate 24 H 01/21/17 10:39 Blood Pressure 120/68 01/21/17 10:39 O2 Sat (%) 98 01/21/17 10:39 O2 Delivery Mode Room Air Allergies/Adverse Reactions: Cephalosporins Allergy (Intermediate, Verified 01/21/17 10:39) Rash Penicillins Allergy (Intermediate, Verified 01/21/17 10:39) Rash atorvastatin Allergy (Verified 01/21/17 10:39) Home Medications: Medication Instructions Recorded DULoxetine [Cymbalta 60 MG (*)] 60 mg PO DAILY 11/07/15 Diazepam [Valium 5 MG (*)] 5 mg PO SUTUTH@11/07/15 Hydrochlorothiazide [HCTZ (*)] 12.5 mg PO DAILY 11/07/15 Levothyroxine [Synthroid 88 mcg 88 mcg PO SUTUWETHFRSA@11/07/15 (*)] Metoprolol Succinate Xr [Toprol Xl 25 mg PO DAILY PRN 11/07/15 25 mg (*)] Omeprazole [Prilosec 20 mg] 40 mg PO DAILY@11/07/15 Valsartan [Diovan (*)] 160 mg PO DAILY@11/07/15 Cholecalciferol Vit D3 [Vitamin D3 4,000 units PO DAILY 01/15/16 (*)] Herbals/Supplements -Info Only 1 ea PO DAILY 01/15/16 Memantine HCl [Namenda 5 mg (*)] 5 mg PO HS 01/15/16 Vitamin B Complex [B Complex] 1 each PO DAILY@01/15/16 Calcium Carbonate [Oyster Shell 500 mg PO BID 02/08/16 Calcium 500 mg (*)] Fluticasone Hfa 220 Mcg [Flovent 2 puffs IH BID 02/08/16 220 MCG Hfa MDI (*)] LORazepam [Ativan (*)] 0.5 mg PO Q4 PRN 02/08/16 Ibuprofen [Motrin (*)] 200 mg PO DAILY PRN 11/26/16 Midodrine HCl 2.5 mg PO DAILY PRN 11/26/16 Medical Decision Making - Diagnostics EKG Interpretation: EKG interpreted by me reveals normal sinus rhythm, rate 82, no ST or T segment changes. ED Course/Re-evaluation: This patient presents with worsening shortness of breath and chest pain. She is at intermediate risk for pulmonary embolism per Wells criteria. CT pulmonary angiogram ordered. EKG reveals no evidence of ischemia or dysrhythmia. Given prolonged and atypical pain, I do not suspect acute coronary syndrome in this patient. CT results discussed with the patient and her family. She states that she feels better. When I initially entered the room, her resp rate seemed normal, but gradually increased as a was talking to her. She denies anxiety as a component of her sx, though it would be interesting for her to try a benzo to see if it helps her sx. O2 sat remains 96% on RA. Chest CTA. She declines admission. She prefers to follow up in the office with Dr. Robles and her usual charging manipulator. Warning signs discussed. Differential Diagnosis: Differential diagnosis includes though it is not limited to pneumonia, pneumothorax, pulmonary embolism, aortic dissection, pericarditis, acute coronary syndrome. - Data Points Laboratory Results: Laboratory Results 01/21/17 11:49 01/21/17 11:49 Departure - Departure Disposition: Home, Routine, Self-Care Clinical Impression: Dyspnea Chest pain Qualifiers: Chest pain type: other chest pain Qualified Code(s): R07.89 - Other chest pain Condition: Fair Instructions: Chest Pain (ED), Dyspnea (ED) Additional Instructions: Return for worsening symptoms or any concerns. Referrals: Leonarda Santana MD [Primary Care Provider] - As per Instructions Mark Anthony Robles MD [Medical Doctor] - As per Instructions (Keep your appointment with Dr. Robles.)
--- NOTE | 2017-01-21 11:34 | CPEKG ---
Heart Rate: 82 RR Interval: 732 P-R Interval: 172 QRSD Interval: 72 QT Interval: 380 QTC Interval: 444 P [place]: 58 QRS [place]: -17 T Wave [place]: 46 EKG Severity - OTHERWISE NORMAL ECG - EKG Impression: SINUS RHYTHM EKG Impression: BORDERLINE LEFT AXIS DEVIATION Electronically Signed By: Lauren Wiggins 21-Jan-2017 14:53:31
--- NOTE | 2017-01-21 11:34 | CPEKG ---
Heart Rate: 82 RR Interval: 732 P-R Interval: 172 QRSD Interval: 72 QT Interval: 380 QTC Interval: 444 P [place]: 58 QRS [place]: -17 T Wave [place]: 46 EKG Severity - OTHERWISE NORMAL ECG - EKG Impression: SINUS RHYTHM EKG Impression: BORDERLINE LEFT AXIS DEVIATION Electronically Signed By: Lauren Wiggins 21-Jan-2017 14:53:31
[2017-01-21 12:06] LABS: PLATELET COUNT 190 10^3/uL (150-400)
[2017-01-21] MEDS ORDERED: IOPAMIDOL (ISOVUE 370) 100 ML BTL IV ONE ×2 (12:34)
[2017-01-21 14:08] VITALS: BP 121/88; PULSE 93; RESP 18; O2SAT 95
== END 2017-01-21 14:08 | disposition home or self-care (01) ==
DX: R07.89 Other chest pain (principal); R06.00 Dyspnea, unspecified; I10 Essential (primary) hypertension; Z87.891 Personal history of nicotine dependence
CPT/HCPCS: 71275; 93005; 99285; Q9967; 82947-QW

== ENCOUNTER 2017-02-02 11:08 | Observation (INO) | payer OTHER ==
[2017-02-02] MEDS ORDERED: NS 1,000 ML IV ONE (11:13)
--- NOTE | 2017-02-02 11:51 | PDHPUP ---
History & Physical Update H&P update statement: This history and physical update is based on an assessment of the patient which was completed after admission or registration (within 24 hours), but prior to the surgery/procedure. H&P update: H&P reviewed & patient examined, no change in patient's condition since H&P completed
--- NOTE | 2017-02-02 11:54 | CPEKG ---
Heart Rate: 63 RR Interval: 952 QRSD Interval: 84 QT Interval: 460 QTC Interval: 471 QRS [place]: 9 T Wave [place]: 36 EKG Severity - ABNORMAL ECG - EKG Impression: NORMAL SINUS RHYTHM Electronically Signed By: Hamilton Davenport 02-Feb-2017 16:50:25
[2017-02-02 11:55] LABS: % IMMATURE GRANULYOCYTES 0.2 % (0.0-1.1); ABSOLUTE IMMATURE GRANULOCYTES 0.01 10^3/uL (0.00-0.10); ADD DIFF? NO; ADD MORPH? NO; ADD SCAN? NO; ATYPICAL LYMPHOCYTE FLAG 0 (0-99); FRAGMENT RBC FLAG 0 (0-99); HEMATOCRIT 38.1 % (38.0-47.0); HEMOGLOBIN 14.2 g/dL (12.6-16.3); LEFT SHIFT FLG 0 (0-99); LIPEMIA HEMOLYSIS FLAG 90 (0-99); MEAN CELL HEMOGLOBIN 33.3 pg (27.9-34.1); MEAN CELL HEMOGLOBIN CONCENTR. 37.3 g/dL (32.4-36.7); MEAN CELL VOLUME 89.2 fL (81.5-99.8); PLATELET CLUMPS FLAG 20 (0-99); PLATELET COUNT 136 10^3/uL (150-400); RED BLOOD CELL COUNT 4.27 10^6/uL (4.18-5.33); RED CELL DISTRIBUTION WIDTH 12.7 % (11.5-15.2)
[2017-02-02 12:09] LABS: INR 0.91 (0.83-1.16); PROTIME(PATIENT) 12.1 SEC (12.0-15.0)
[2017-02-02 12:14] LABS: ANION GAP 17 mEq/L (8-16); CALCIUM 9.6 mg/dL (8.5-10.4); CARBON DIOXIDE 20 mEq/l (22-31); CHLORIDE 104 mEq/L (97-110); GLOMERULAR FILTRATION RATE 55; GLUCOSE 90 mg/dL (70-100); MAGNESIUM 1.9 mg/dL (1.6-2.3); POTASSIUM 3.5 mEq/L (3.5-5.2); SODIUM 141 mEq/L (134-144)
[2017-02-02] MEDS ORDERED: HEPARIN 10,000 UNIT/10 ML MDV ONE (12:29)
[2017-02-02] MEDS ORDERED: LIDOCAINE 1% 300 MG/30 ML SDV ONE (12:29)
[2017-02-02] MEDS ORDERED: ISOPROTERENOL HCL/D5W 0.2 MG/50 ML BAG IV ONE ×2 (12:30→15:38)
[2017-02-02] MEDS ORDERED: BUPIVACAINE 0.5% 30 ML SDV ONE (12:30)
--- NOTE | 2017-02-02 12:41 | PDANEPAE ---
ANE History of Present Illness 66 yo for EPS ANE Past Medical History - Cardiovascular History Hx Hypertension: Yes Hx Arrhythmias: No Hx Chest Pain: No Hx Coronary Artery / Peripheral Vascular Disease: No Hx CHF / Valvular Disease: Yes Hx Palpitations: Yes Cardiovascular History Comment: Occ. hypotension-syncope 04/25/14. Benign heart murmur. - Pulmonary History Hx COPD: No Hx Asthma/Reactive Airway Disease: No Hx Recent Upper Respiratory Infection: No Hx Oxygen in Use at Home: No Hx Sleep Apnea: Yes Pulmonary History Comment: SOB. CPAP @ night - Neurologic History Hx Cerebrovascular Accident: No Hx Seizures: No Hx Dementia: No Neurologic History Comment: L leg weakness may be due to 3 bulging discs in spine. - Endocrine History Hx Diabetes: Yes Endocrine History Comment: Pre Diabetic. 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 - Liver History Hx Hepatic Disorders: No Hepatic History Comment: Hemangioma - Neurological & Psychiatric Hx Hx Neurological and Psychiatric Disorders: Yes Neurological / Psychiatric History Comment: Depression - Cancer History Hx Cancer: No - Congenital Disorder History Hx Congenital Disorders: No - GI History Hx Gastrointestinal Disorders: Yes Gastrointestinal History Comment: GERD - Other Health History Other Health History: Propheria, Polymylasia - Chronic Pain History Chronic Pain: Yes (shoulders and back.) - Surgical History Prior Surgeries: 1963-3 surgeries on R femur. 1979-remove R femur hardware. 1995 -total hysterectomy. 2000-GB removed. 2000-fudiplication. 2006-2 surg L foot, 1 surg R foot. 2014-R hand trigger finger ANE Review of Systems Review of Systems: ANE Patient History - Allergies Allergies/Adverse Reactions: Cephalosporins Allergy (Intermediate, Verified 01/21/17 10:39) Rash Penicillins Allergy (Intermediate, Verified 01/21/17 10:39) Rash atorvastatin Allergy (Verified 01/21/17 10:39) - Home Medications Home medications: home medication list seen and reviewed Home Medications: DULoxetine [Cymbalta 60 MG (*)] 60 mg PO DAILY 11/07/15 [Last Taken 11/25/16] Diazepam [Valium 5 MG (*)] 5 mg PO SUTUTH@21 11/07/15 [Last Taken 11/24/16] Hydrochlorothiazide [HCTZ (*)] 12.5 mg PO DAILY 11/07/15 [Last Taken 11/25/16] Levothyroxine [Synthroid 88 mcg (*)] 88 mcg PO SUTUWETHFRSA@11/07/15 [Last Taken 11/26/16] Metoprolol Succinate Xr [Toprol Xl 25 mg (*)] 25 mg PO DAILY PRN 11/07/15 [Last Taken 01/14/16] Omeprazole [Prilosec 20 mg] 40 mg PO DAILY@11/07/15 [Last Taken 11/25/16] Valsartan [Diovan (*)] 160 mg PO DAILY@11/07/15 [Last Taken 11/25/16] Cholecalciferol Vit D3 [Vitamin D3 (*)] 4,000 units PO DAILY 01/15/16 [Last Taken 11/25/16] Herbals/Supplements -Info Only 1 ea PO DAILY 01/15/16 [Last Taken Unknown] Memantine HCl [Namenda 5 mg (*)] 5 mg PO HS 01/15/16 [Last Taken 11/25/16] Vitamin B Complex [B Complex] 1 each PO DAILY@01/15/16 [Last Taken 11/25/16] Calcium Carbonate [Oyster Shell Calcium 500 mg (*)] 500 mg PO BID 02/08/16 [ Last Taken 11/25/16] Fluticasone Hfa 220 Mcg [Flovent 220 MCG Hfa MDI (*)] 2 puffs IH BID 02/08/16 [ Last Taken 02/08/16 08:00] LORazepam [Ativan (*)] 0.5 mg PO DAILY PRN 02/08/16 [Last Taken Unknown] Ibuprofen [Motrin (*)] 200 mg PO DAILY PRN 11/26/16 [Last Taken 11/25/16] Midodrine HCl 2.5 mg PO DAILY PRN 11/26/16 [Last Taken Unknown] diphenhydrAMINE [Benadryl 25 MG (*)] 25 mg PO DAILY PRN 01/28/17 [Last Taken Unknown] levETIRAcetam [Keppra 500 mg (*)] 500 mg PO BID 01/28/17 [Last Taken Unknown] - NPO status NPO Status: no food or drink >8 hours - Smoking Hx Smoking Status: Former smoker - Family Anes Hx Family Hx Anesthesia Complications: no ANE Labs/Vital Signs - Labs Result Diagrams: 02/02/17 11:44 02/02/17 11:44 - Vital Signs Height: 5 ft 6.14 in Weight: 86.2 kg ANE Physical Exam - Airway Neck exam: FROM Mallampati Score: Class 2 - Pulmonary Pulmonary: no respiratory distress - Cardiovascular Cardiovascular: regular rate and rhythym - ASA Status ASA Status: II ANE Anesthesia Plan Anesthesia Plan: MAC
[2017-02-02] MEDS ORDERED: PROPOFOL/EMULSION 500 MG/50 ML BOTTLE IV ONE ×3 (12:49→15:37)
[2017-02-02] MEDS ORDERED: ONDANSETRON 4 MG/2 ML VIAL IVP PRN ×2 (16:27→17:37)
[2017-02-02] MEDS ORDERED: fentaNYL 100 MCG/2 ML INJ IVP PRN (16:27)
[2017-02-02] MEDS ORDERED: NALOXONE HCL 0.4 MG/ML INJ IVP PRN (16:27)
[2017-02-02] MEDS ORDERED: ATROPINE SULFATE 1 MG/10 ML SYR ONE (16:46)
[2017-02-02] MEDS ORDERED: METOPROLOL SUCCINATE XR 25 MG TAB PO PRN (17:35)
[2017-02-02] MEDS ORDERED: diphenhydrAMINE 25 MG CAP PO PRN (17:35)
[2017-02-02] MEDS ORDERED: LORazepam 0.5 MG TAB PO PRN (17:35)
[2017-02-02] MEDS ORDERED: IBUPROFEN 200 MG TAB PO PRN (17:35)
[2017-02-02] MEDS ORDERED: MIDODRINE HCL 5 MG TAB PO PRN (17:35)
--- NOTE | 2017-02-02 18:02 | CPEKG ---
Heart Rate: 82 RR Interval: 732 P-R Interval: 188 QRSD Interval: 86 QT Interval: 412 QTC Interval: 482 P [place]: 58 QRS [place]: 5 T Wave [place]: 44 EKG Severity - NORMAL ECG - EKG Impression: SINUS RHYTHM Electronically Signed By: Mark Anthony Robles 02-Feb-2017 19:45:58
[2017-02-02 19:05] LABS: ANION GAP 13 mEq/L (8-16); CALCIUM 7.7 mg/dL (8.5-10.4); CARBON DIOXIDE 22 mEq/l (22-31); CHLORIDE 104 mEq/L (97-110); GLOMERULAR FILTRATION RATE 55; GLUCOSE 140 mg/dL (70-100); MAGNESIUM 1.7 mg/dL (1.6-2.3); SODIUM 139 mEq/L (134-144)
[2017-02-02 19:28] LABS: POTASSIUM 2.7 mEq/L (3.5-5.2)
--- NOTE | 2017-02-02 19:31 | CPEKG ---
Heart Rate: 82 RR Interval: 732 P-R Interval: 180 QRSD Interval: 86 QT Interval: 416 QTC Interval: 486 P [place]: 51 QRS [place]: -5 T Wave [place]: 41 EKG Severity - BORDERLINE ECG - EKG Impression: SINUS RHYTHM Electronically Signed By: Mark Anthony Robles 02-Feb-2017 19:45:51
[2017-02-02] MEDS ORDERED: PROTOCOL MAGNESIUM 1 DOSE IV PRN (19:58)
[2017-02-02] MEDS ORDERED: PROTOCOL POTASSIUM 1 DOSE MISC PRN (19:58)
[2017-02-02] MEDS ORDERED: POTASSIUM CL 10 MEQ TAB PO ONE (20:11)
[2017-02-02] MEDS ORDERED: MAGNESIUM SULF 1 GM/DEXTROSE 100 ML IV ONE (20:11)
[2017-02-02] MEDS: levETIRAcetam 500 MG TAB PO SCH (20:57)
[2017-02-02] MEDS ORDERED: MEMANTINE HCL 5 MG TAB PO SCH (21:00)
[2017-02-02] MEDS ORDERED: DIAZEPAM 5 MG TAB PO SCH (21:00)
[2017-02-02] MEDS: FLUTICASONE HFA 220 MCG MDI IH SCH (22:31)
[2017-02-03 05:36] LABS: % IMMATURE GRANULYOCYTES 0.2 % (0.0-1.1); ABSOLUTE IMMATURE GRANULOCYTES 0.01 10^3/uL (0.00-0.10); ADD DIFF? NO; ADD MORPH? NO; ADD SCAN? NO; ATYPICAL LYMPHOCYTE FLAG 0 (0-99); FRAGMENT RBC FLAG 0 (0-99); HEMATOCRIT 32.5 % (38.0-47.0); HEMOGLOBIN 11.4 g/dL (12.6-16.3); LEFT SHIFT FLG 0 (0-99); LIPEMIA HEMOLYSIS FLAG 90 (0-99); MEAN CELL HEMOGLOBIN 32.9 pg (27.9-34.1); MEAN CELL HEMOGLOBIN CONCENTR. 35.1 g/dL (32.4-36.7); MEAN CELL VOLUME 93.9 fL (81.5-99.8); MEAN PLATELET VOLUME 10.6 fL (8.7-11.7); PLATELET CLUMPS FLAG 0 (0-99); PLATELET COUNT 134 10^3/uL (150-400); RED BLOOD CELL COUNT 3.46 10^6/uL (4.18-5.33); RED CELL DISTRIBUTION WIDTH 12.9 % (11.5-15.2)
[2017-02-03 05:55] LABS: INR 1.04 (0.83-1.16); PROTIME(PATIENT) 13.5 SEC (12.0-15.0)
[2017-02-03 05:57] LABS: ANION GAP 9 mEq/L (8-16); CALCIUM 7.9 mg/dL (8.5-10.4); CARBON DIOXIDE 28 mEq/l (22-31); CHLORIDE 106 mEq/L (97-110); GLOMERULAR FILTRATION RATE 55; GLUCOSE 99 mg/dL (70-100); MAGNESIUM 2.3 mg/dL (1.6-2.3); SODIUM 143 mEq/L (134-144)
[2017-02-03] MEDS ORDERED: LEVOTHYROXINE 88 MCG TAB PO SCH (06:00)
[2017-02-03 06:07] LABS: TROPONIN I 0.244 ng/mL (0.000-0.034)
[2017-02-03 06:40] LABS: CK-MB INTERPRETATION NEGATIVE (NEGATIVE)
--- NOTE | 2017-02-03 06:40 | EPPROC ---
Electrophysiology Procedure Note: Proc date 02/02/2017 ELECTROPHYSIOLOGIC STUDY AND CATHETER MEDIATED ABLATION OF 3 SEPARATE RIGHT ATRIAL TACHYCARDIAS PROCEDURES PERFORMED: 1. EP evaluation with RA/RV/LA pace/record, with arrhythmia induction 2. EP evaluation with RA/RV pace record, insert/reposition catheter , with arrhythmia induction 3. Intracardiac catheter ablation, SVT arrhythmogenic focus 4. Second arrhythmia 4. 3D mapping 5. Fluoroscopy INDICATION: Recurrent tachycardia and syncope Catheters and anesthesia: The patient arrived in the Electrophysiology Laboratory in the fasting state. The right clavicular region, right groin, and left groin area were prepped and draped in the usual sterile manner. Anesthesiologist Dr. Guillermo Hannah administered LMA . Appropriate non-invasive blood pressure, pulse oximetry and end-tidal CO2 monitoring was established. All catheters were placed percutaneously using the modified Seldinger technique , and advanced into position under fluoroscopic guidance. One #7 Jamaican deflectable octapolar electrode catheter was advanced to the His-bundle position via the left femoral vein (2mm spacing; except the proximal ring which was 25cm from the tip used for unipolar recordings). One #7 Jamaican deflectable catheter with 10 pairs of electrodes was placed via the left femoral vein into the coronary sinus. A 20 pole catheter was placed along the veena terminalis. Programmed stimulation was performed from the right atrium, left atrium ( coronary sinus) and right ventricle. Parahisian pacing demonstrated all retrograde conduction over the AV node Heparin was administered to keep ACT > 200 seconds. Programmed stimulation of right atrium during infusion of isoproterenol 1 mcg/ min induced 3 separate right atrial tachycardias. AT #1 CL 375 ms AT # 2 485 ms AT #3 420 ms A #7 Jamaican mapping catheter was introduced into the right atrium and used for mapping AT . A 3D mapping system (Carto) was used. AT#1 was ablated first at the lateral aspect of the superior veena terminalis. It was non inducible after the first ablation. AT#2 was ablated inferior to AT #1. AT#3 was ablated inferior and more lateral to AT#2. Atrial fibrillationwas also inducible at EP study. On one instance it organized to atrial flutter. Cardioversion was performed for AFIB. AFIB or AFL were not targeted for ablation. Programmed stimulation in the baseline state and during infusion of isoproterenol 1, 2 mcg/min post ablation was performed. No tachycardia could be induced. The catheters were removed. The patient was transferred to the cardiovascular holding area in stable condition. Vascular access sheaths were removed in the holding area. There were no apparent complications. RESULTS A. Spontaneous Intervals: Pre ablation SCL 870 ms AH 85 ms HV 40 ms Post ablation SCL 760 ms AH 80 ms HV 40 ms B. Antegrade AV hal function (decremental pacing) Pre ablation FPERP 360 ms WBB CL 350 ms Post ablation FPERP 360 ms WBB CL 350 ms C. Retrograde AV hal function (decremental pacing) Pre ablation FPERP 520 ms WBB CL 510 ms CONCLUSIONS: 1. Focal atrial tachycardias arising along the superior aspect of veena terminalis, 3 separate foci. 2. Successful ablation of focal atrial tachycardias. 3. No apparent complications. Patient Problems: Problems Problem Status Onset Hyperparathyroidism Chronic Pulmonary embolus Chronic Subdural hemorrhage Acute Hypertension Acute Headache Acute Chest pain Acute Syncope Acute Tachypnea Acute Anxiety Acute
--- NOTE | 2017-02-03 06:40 | CPEKG ---
Heart Rate: 124 RR Interval: 484 P-R Interval: 133 QRSD Interval: 72 QT Interval: 340 QTC Interval: 489 P [place]: 0 QRS [place]: -10 T Wave [place]: 43 EKG Severity - BORDERLINE ECG - EKG Impression: atrial tachycardia Electronically Signed By: Mark Anthony Robles 03-Feb-2017 17:16:56
[2017-02-03] MEDS ORDERED: METOPROLOL TARTRATE 25 MG TAB PO ONE (07:00)
[2017-02-03] MEDS ORDERED: VALSARTAN 160 MG TAB PO SCH (08:00)
[2017-02-03] MEDS ORDERED: PANTOPRAZOLE SODIUM 40 MG TAB PO SCH (08:00)
[2017-02-03 08:20] VITALS: BP 123/89; PULSE 73; RESP 25; TEMP 97.4
--- NOTE | 2017-02-03 08:25 | POSTANESTH ---
Post Anesthetic Evaluation Cardiovascular Status: Normal, Stable Respiratory Status: Normal, Stable Level of Consciousness/Mental Status: Can Participate in Eval Pain Control: Adequate, Prn Tx Ordered Nausea/Vomiting Control: Adequate, Prn Tx Ordered Complications Possibly Related to Anesthesia: None Noted
[2017-02-03 08:48] VITALS: O2SAT 95
[2017-02-03] MEDS ORDERED: HYDROCHLOROTHIAZIDE 12.5 MG CAP PO SCH (09:00)
[2017-02-03] MEDS ORDERED: ASPIRIN 81 MG CHEWABLE TAB PO SCH (09:00)
[2017-02-03] MEDS ORDERED: DULoxetine 60 MG CAP PO SCH (09:00)
--- NOTE | 2017-02-03 09:29 | ECHO ---
[email or web address] [address] Main: [phone] Fax: Transthoracic Echocardiogram Name: VELASQUEZ WARD MR#: [id number] Study Date: 02/03/2017 Study Time: 07:58 AM Date of : 1950 Age: 66 year(s) Height: 167.6 cm (66 in.) Weight: 86.18 kg (190 lb.) BSA: 1.96 m2 Gender: Female Examination: Echo Indication: Post Ablation Image Quality: Contrast: Requested by: Mark Anthony Robles BP: 125 mmHg/76 mmHg Heart Rate: Rhythm: Indication: Post Ablation Procedure Staff Brazing Furnace Feeder: Dionte Chang Reading Physician: Mark Anthony Robles Requesting Provider: Conclusions: EF is 77 %. Diastolic dysfunction is present. . Normal study Measurements: Chambers Valvular Assessment AV/MV Valvular Assessment TV/PV Normal Normal Normal Name Value Range Name Value Range Name Value Range Ao Ayla (MM): 3.0 cm (2.2 cm-3.7 AV Vmax: 1.16 m/s (1 m/s-1.7 TR Vmax: 2.05 mm/s ( - ) cm) m/s) TR PGmax: 17 mmHg ( - ) IVSd (2D): 0.8 cm (0.6 cm-1.1 AV maxP mmHg ( - ) syst. PAP: 22 mmHg ( - ) cm) LVOT Vmax: 0.63 m/s (0.7 m/s-1.1 PV Vmax: 0.80 m/s (0.6 m/s-0.9 LVDd (2D): 4.2 cm (3.9 cm-5.3 m/s) m/s) cm) MV E Vmax: 0.72 m/s ( - ) PV PGmax: 3 mmHg ( - ) LVDs (2D): 2.3 cm (2.1 cm-4 MV A Vmax: 0.83 m/s ( - ) cm) MV E/A: 0.87 ( - ) LVPWd (2D): 0.9 cm ( - ) LVEF (2D): 77 (>=54 %) Continued Measurements: Chambers Valvular Assessment AV/MV Valvular Assessment TV/PV Name Value Name Value Name Value LADs Lon.3 cm MV E/E' Septal: 11.50 CVP (est.): 5 mmHg LA Area: 18.5 cm2 MV E/E' Lateral: 10.60 LA Volume: 52 ml LA Volume Index: 26.5 ml/m2 Patient: VELASQUEZ WARD Study Date: 02/03/2017 Page 1 of 2 07:58 AM Findings: Left Ventricle: Normal size left ventricle. Normal global systolic LV function. EF is 77 %. No regional wall motion abnormality. Diastolic dysfunction is present. . Right Ventricle: Normal size right ventricle. Normal RV function. Left Atrium: The left atrium is normal in size. Right Atrium: The right atrium is normal in size. Mitral Valve: The mitral valve is normal in appearance and function. Trivial mitral valve regurgitation. Aortic Valve: The aortic valve is normal in appearance and function. Tricuspid Valve: The tricuspid valve is normal in appearance and function. The pulmonary artery pressure is normal. Pulmonic Valve: The pulmonic valve is normal in appearance and function. Aorta: The aorta is normal. Pericardium: No pericardial effusion. (No Signature Object) Patient: VELASQUEZ WARD Study Date: 02/03/2017 Page 2 of 2 07:58 AM [id number]
[2017-02-03] MEDS: FLUTICASONE HFA 220 MCG MDI IH SCH (09:33)
[2017-02-03] MEDS: levETIRAcetam 500 MG TAB PO SCH (09:34)
--- NOTE | 2017-02-03 14:08 | ASDISCHSUM ---
Discharge Information Plan Status:Home with No Needs Medically Cleared to Leave:02/02/2017 Discharge Date:02/03/2017 11:51 AM CM D/C Disposition: ADT D/C Disposition:Home, Routine, Self-Care Projected Discharge Date:02/03/2017 12:00 AM Transportation at D/C: Discharge Delay Reason: Follow-Up Date:02/03/2017 12:00 AM Discharge Slot: Final Diagnosis: Placement Information Patient Contact Information Contact Name:JOAQUIM Relationship:Daughter Address: Work Phone: City:[place] Alternate Phone: State/[place] Code[place] Email: Financial Information Financial Class: Primary Plan Desc:MEDICARE OUTPATIENT Primary Plan Number:[id number] Secondary Plan Desc:LILLIAN LAMB PPO Secondary Plan Number:[id number] Assessment Information Intervention Information Intervention Type:*HANCOCK-Signed Date of Service:02/03/2017 11:27 AM Patient Type:Observation Staff Member:Tara Mcclure Hours: Discipline: Severity: Comment:
--- NOTE | 2017-02-03 14:10 | CPEKG ---
Heart Rate: 69 RR Interval: 870 P-R Interval: 180 QRSD Interval: 82 QT Interval: 440 QTC Interval: 472 P [place]: 73 QRS [place]: 1 T Wave [place]: 36 EKG Severity - NORMAL ECG - EKG Impression: SINUS RHYTHM Electronically Signed By: Mark Anthony Robles 03-Feb-2017 17:16:38
--- NOTE | 2017-02-04 04:35 | GDS ---
[f rep st] DISCHARGE SUMMARY BRIEF HISTORY: This is a 66-year-old woman who was referred to Dr. oRbles by Dr. Camargo. She has a history of palpitations for about 1 year with symptoms of dizziness and near syncope despite beta-aubree use. SVT was seen on the monitor at 140-160 beats per minute. There is also a slower A-tach noted around 130 beats per minute. HOSPITAL COURSE: Dr. Robles performed EP study that demonstrated 3 different atrial tachycardias. He ablated 3 focal ATs arising along the superior aspect of the veena terminalis. Atrial fibrillation was induced and one time organized into atrial flutter. Cardioversion was performed for atrial fibrillation during the procedure. Neither of these arrhythmias were targeted for ablation. Overnight the patient did OK. She has not had any chest pain, pressure, tightness. She did have 1 episode of shortness of breath. Dr. Robles evaluated her at that time. She had oxygen on for a short period of time and then recovered. She also had 1 short nonsustained atrial tachycardia at 124 beats per minute. Telemetry demonstrates rates less than 90 beats per minute the rest of the time. O2 saturation on room air, after her episode of shortness of breath, was 95%. Her potassium did drop to 2.7 and she received 40 mEq of p.o. potassium. Potassium increased to 4.0 this morning. She denies any pain at her groin sites or bleeding. She does not have any abdominal or lower back discomfort. Testing done: Echocardiogram demonstrates ejection fraction of 77%. No significant valvular abnormalities and no pericardial effusion. LABS: WBC is 4.41, hemoglobin 11.4, hematocrit 32.5, platelets 134. PT is 13.5 , INR is 1.04, sodium 143, potassium 4.0, chloride 106, bicarb 28, BUN 12, creatinine 1.0, glucose 99. Magnesium 2.3. CK 370 with MB fraction 2.6, and percent 0.7. Troponin is 0.244; these are elevated and to be expected post ablation. PHYSICAL EXAM: VITAL SIGNS: Blood pressure is 125/76, pulse is 79, respirations 20, temperature 36.8, O2 saturation on room air is 95%. GENERAL: She is alert and oriented, in no acute distress, sitting up in bed. LUNGS: Clear to auscultation. CARDIAC: Regular rate, rhythm without murmur, rub, or gallop. ABDOMEN: Soft, and nontender. Groin sites are without ecchymosis or hematoma. EXTREMITIES: Lower extremities are warm. No discoloration. Bilateral +1 pedal pulses. No lower extremity edema. CHEST WALL: She does have some mild irritation at the outline of the defibrillator pads on her anterior chest. There is no open skin or blisters. DISCHARGE MEDICATIONS: Please see discharge medication reconciliation. She will continue her usual home medications. She will take 81 mg of aspirin daily for 6 weeks post ablation. DISCHARGE INSTRUCTIONS: Post ablation activity restrictions were verbally reviewed with patient and she was given written instructions on these as well. FOLLOWUP: She has a followup scheduled with Dr. Robles on March 10 at 2:30. /[id number]/MODL MTDD
== END 2017-02-03 11:51 | disposition home or self-care (01) ==
LOC: FCATH 11:08 → F2W 17:07
PROVIDERS: ADMIT Internal Medicine Cardiovascular Disease; ATTEND Internal Medicine Cardiovascular Disease
PROC: B2111ZZ Fluoroscopy of Multiple Coronary Arteries using Low Osmolar Contrast (ICD-10-PCS; principal; 2017-02-02)
PROC: B2151ZZ Fluoroscopy of Left Heart using Low Osmolar Contrast (ICD-10-PCS; principal; 2017-02-02)
PROC: 02563ZZ Destruction of Right Atrium, Percutaneous Approach (ICD-10-PCS; principal; 2017-02-02)
PROC: 02H73MZ Insertion of Cardiac Lead into Left Atrium, Percutaneous Approach (ICD-10-PCS; principal; 2017-02-02)
PROC: 02K83ZZ Map Conduction Mechanism, Percutaneous Approach (ICD-10-PCS; principal; 2017-02-02)
PROC: 4A023FZ Measurement of Cardiac Rhythm, Percutaneous Approach (ICD-10-PCS; principal; 2017-02-02)
DX: I47.1 Supraventricular tachycardia (principal); R00.2 Palpitations; R42 Dizziness and giddiness; R55 Syncope and collapse; I10 Essential (primary) hypertension
CPT/HCPCS: 93005; 93306; 93613; 93621; 93623; 93653; 93655; C1730; C1731; C1732; J1644; J2704; J3475; J0461

== ENCOUNTER 2017-04-21 11:30 | Observation (INO) | payer OTHER ==
[2017-04-21] MEDS ORDERED: ONDANSETRON DISINTEGRATING 4 MG TAB PO PRN (17:34)
[2017-04-21] MEDS ORDERED: ACETAMINOPHEN 325 MG TAB PO PRN (17:34)
[2017-04-21] MEDS ORDERED: ONDANSETRON 4 MG/2 ML VIAL IVP PRN (17:34)
[2017-04-21] MEDS ORDERED: NITROGLYCERIN 0.4 MG BTL SL PRN (17:41)
[2017-04-21] MEDS ORDERED: TEMAZEPAM 15 MG CAP PO PRN (17:41)
[2017-04-21] MEDS ORDERED: IBUPROFEN 200 MG TAB PO PRN (18:16)
[2017-04-21] MEDS ORDERED: diphenhydrAMINE 25 MG CAP PO PRN (18:16)
[2017-04-21] MEDS ORDERED: ASPIRIN EC 325 MG TAB PO ONE (18:19)
[2017-04-21 18:23] LABS: PLATELET COUNT 182 10^3/uL (150-400)
--- NOTE | 2017-04-21 18:33 | PDCARPN ---
Cardiology Progress Note Chief Complaint: Patient reporting episodes of exertional chest pressure over the last 2 weeks. Assessment/Plan: Assessment: Please see Dr. Robles is office note dated 04/21/2017 as official H&P. 67-year-old female with significant past history that includes atrial tachycardia, hypertension, chronic shortness of breath, history of subdural hematoma. Patient seen by Dr. Robles today, reporting 2 weeks of exertional midsternal chest pressure. She is noted to have a mild abnormal stress test at [facility] last year. She reports pericardial chest pressure that radiates into the left shoulder when she walks to her mailbox. Direct admit from our office this evening for further evaluation. Plan: 1. Chest pressure: Patient reporting exertional chest pressure for the last 2 weeks (CCS class III). Currently is pain free. Noted to have a mildly abnormal stress test at [facility] last year. Currently is pain free. Order chest x-ray, electrocardiogram, and cycle troponin levels. Patient given aspirin therapy , sublingual nitroglycerin ordered. Patient will be made NPO after midnight, plan for diagnostic heart catheterization in a.m. to be done by Dr. Camargo. Fasting lipid panel in a.m.. Continues cardiac monitoring. 2. Chronic shortness of breath: Patient appears to be euvolemic. Will have a BNP drawn today. Plan on right heart catheterization with heart catheterization tomorrow for further evaluation of pulmonary pressures. Resume resume home dose of Flovent. 3. Hypertension: Patient with noted history of hypertension, current blood pressure is 157/91. Resume patient's home dose of Diovan. Will hold hydrochlorothiazide at this time in preparation for cardiac catheterization. Will adjust as necessary. 4. Atrial tachycardia: Patient with noted history of atrial tachycardia, was seen Dr. Robles for further evaluation, pending on results of cardiac catheterization, patient will probably scheduled for EP procedure in the next month. 5. History of subdural hematoma: Patient reporting history of seizures, started on home dose Keppra. 6. Hypothyroidism: Resume patient's home dose of Synthroid. TSH in a.m.. 7. DVT precautions: Patient is considered high risk , Chad zheng ordered, hold off on anticoagulation due to planned procedure in a.m.. 8. Code status: Patient is a full code. 04/21/17 18:31 Subjective: Patient currently denies of any chest pain or pressure. Reports no palpitations , orthopnea, PND, lightheadedness, near-syncope, or syncopal events. Reports no worsening in her chronic shortness of breath. Reviewed/Discussed With: other (Dr Robles and Dr Camargo) Objective: Vital Signs (8 Hrs) Temp Pulse Resp BP Pulse Ox 04/21/17 17:17 36.3 C 85 22 H 157/91 H 99 Intake/Output (24 Hrs) 04/20/17 04/21/17 04/22/17 05:59 05:59 05:59 Other: Intake Quantity Yes Sufficient Result Diagrams: 04/21/17 18:01 04/21/17 18:01 - Physical Exam Constitutional: no apparent distress, obese Ears, Nose, Mouth, Throat: moist mucous membranes Cardiovascular: regular rate and rhythm, no rubs, no gallops, systolic murmur (1 -2/6 systolic murmur noted along left sternal border.), pulses symmetric bilat, No jugular vein distention, No carotid bruit Peripheral Pulses: 1+: dorsalis-pedis (R), dorsalis-pedis (L), 2+: carotid (R), carotid (L) Respiratory: clear to auscultate bilat, no crackles, no wheezes Gastrointestinal: normoactive bowel sounds, no masses Skin: no rashes, warm, no edema (Trace to +1 peripheral edema bilateral lower extremities to knees) Neurologic: AAOx3 Psychiatric: cooperative, interactive, following commands ICD10 Worksheet Patient Problems: Problems Problem Status Onset Hyperparathyroidism Chronic Pulmonary embolus Chronic Subdural hemorrhage Acute Hypertension Acute Headache Acute Chest pain Acute Syncope Acute Tachypnea Acute Anxiety Acute
[2017-04-21] MEDS: CALCIUM CARBONATE 500 MG TAB PO SCH (20:16)
[2017-04-21] MEDS: levETIRAcetam 500 MG TAB PO SCH (20:16)
--- NOTE | 2017-04-21 20:26 | CPEKG ---
Heart Rate: 78 RR Interval: 769 P-R Interval: 183 QRSD Interval: 80 QT Interval: 400 QTC Interval: 456 P [place]: 150 QRS [place]: -25 T Wave [place]: 144 EKG Severity - ABNORMAL ECG - EKG Impression: SINUS ATRIAL RHYTHM EKG Impression: BORDERLINE LEFT AXIS DEVIATION Electronically Signed By: Mark Anthony Robles 21-Apr-2017 21:40:10
[2017-04-21] MEDS: FLUTICASONE HFA 220 MCG MDI IH SCH (20:27)
[2017-04-22] MEDS ORDERED: ASPIRIN EC 325 MG TAB PO ONE (06:00)
[2017-04-22] MEDS ORDERED: DIAZEPAM 5 MG TAB PO ONE (06:00)
[2017-04-22] MEDS ORDERED: FAMOTIDINE 20 MG TAB PO ONE (06:00)
[2017-04-22] MEDS ORDERED: diphenhydrAMINE 25 MG CAP PO ONE (06:00)
[2017-04-22] MEDS ORDERED: NS 1,000 ML IV ONE (06:00)
[2017-04-22] MEDS ORDERED: LEVOTHYROXINE 88 MCG TAB PO SCH (06:00)
[2017-04-22 06:03] LABS: INR 0.96 (0.83-1.16)
[2017-04-22] MEDS ORDERED: VITAMIN B COMPLEX 1 EA CAP/TAB PO SCH (08:00)
[2017-04-22] MEDS ORDERED: PANTOPRAZOLE SODIUM 40 MG TAB PO SCH (08:00)
[2017-04-22] MEDS ORDERED: VALSARTAN 160 MG TAB PO SCH (08:00)
[2017-04-22] MEDS: levETIRAcetam 500 MG TAB PO SCH (08:19)
[2017-04-22] MEDS: CALCIUM CARBONATE 500 MG TAB PO SCH (08:19)
--- NOTE | 2017-04-22 08:57 | CPEKG ---
Heart Rate: 79 RR Interval: 759 P-R Interval: 176 QRSD Interval: 76 QT Interval: 404 QTC Interval: 464 P [place]: 58 QRS [place]: 4 T Wave [place]: 50 EKG Severity - NORMAL ECG - EKG Impression: SINUS RHYTHM Electronically Signed By: Mark Anthony Robles 22-Apr-2017 10:00:34
[2017-04-22] MEDS ORDERED: DULoxetine 60 MG CAP PO SCH (09:00)
[2017-04-22] MEDS ORDERED: CHOLECALCIFEROL VIT D3 2,000 UNITS TAB/CAP PO SCH (09:00)
[2017-04-22] MEDS: FLUTICASONE HFA 220 MCG MDI IH SCH (09:06)
--- NOTE | 2017-04-22 10:14 | PDCARPN ---
Cardiology Progress Note Chief Complaint: SOB, BEAR, Chest pain Assessment/Plan: Assessment: 1. Exertional chest pain 2. SOB, BEAR Plan: -Left and right heart cath today -Risk and benefits discussed in detail 04/22/17 10:14 Subjective: Mrs. Martinez has had continued complaints of sob, bear and exertional intolerance. She has developed new onset of left chest pain at rest with radiation to left shoulder. She notes exertional chest pain with walking to the mailbox. She admits to having chest pain at the time of my exam this morning. Trop has been negative x 3. BNP 153. CBC and CMP unremarkable. Plan for Left and Right Heart cath. Procedure reviewed in detail. Pt does have a hx of subdural hematoma in 2014. She did tolerate Aspirin 81 mg daily for six weeks after her ablation last year. Time Spent With Patient: 25 min Objective: Vital Signs (8 Hrs) Temp Pulse Resp BP Pulse Ox 04/22/17 09:07 76 18 96 04/22/17 07:21 36.1 C 77 93 H 119/79 18 L 04/22/17 04:00 36.4 C 81 16 114/82 H 95 Intake/Output (24 Hrs) 04/21/17 04/22/17 04/23/17 05:59 05:59 05:59 Intake Total 350 Balance 350 Intake: Oral (ml) 350 IV Intake (ml) 0 Other: Weight 90.1 kg Intake Quantity Yes Sufficient Result Diagrams: 04/21/17 18:01 04/22/17 05:00 Cardiac Labs: Cardiac Lab Results (72 Hrs) 04/22/17 04/21/17 04/21/17 05:00 23:50 18:01 Troponin I < 0.012 < 0.012 < 0.012 - Physical Exam Constitutional: apparent distress Eyes: PERRL Ears, Nose, Mouth, Throat: moist mucous membranes Cardiovascular: regular rate and rhythm, no murmurs, no rubs, no gallops Respiratory: clear to auscultate bilat Skin: no rashes Musculoskeletal: no muscular tenderness Neurologic: AAOx3, CN II-XII grossly intact Psychiatric: cooperative, interactive, following commands ICD10 Worksheet Patient Problems: Problems Problem Status Onset Hyperparathyroidism Chronic Pulmonary embolus Chronic Subdural hemorrhage Acute Hypertension Acute Headache Acute Chest pain Acute Syncope Acute Tachypnea Acute Anxiety Acute
--- NOTE | 2017-04-22 10:46 | PDPROPOC ---
Sedation Plan of Care Sedation Plan of Care: vital signs stable, mental status noted, patient educated of risks, benefits, alternatives, patient can tolerate sedation ASA Classification: ASA 2 Planned drugs: fentanyl, midazolam Mallampati Score: Class 2 Mallampati Reference Image: Patient passed 3-3-2 rule?: Yes
--- NOTE | 2017-04-22 10:48 | PDHPUP ---
History & Physical Update H&P update statement: This history and physical update is based on an assessment of the patient which was completed after admission or registration (within 24 hours), but prior to the surgery/procedure. 67 year old female with hx of atrial tachycardia with complaints of increasing sob and exertional intolerance and new onset of exertional chest pain H&P update: H&P reviewed & patient examined
[2017-04-22] MEDS ORDERED: FAMOTIDINE 20 MG TAB ONE (11:06)
[2017-04-22] MEDS ORDERED: DIAZEPAM 5 MG TAB ONE (11:06)
[2017-04-22] MEDS ORDERED: LIDOCAINE 1% 300 MG/30 ML SDV ONE (11:14)
[2017-04-22] MEDS ORDERED: IOPAMIDOL (ISOVUE-370) 150 ML BTL IV ONE (11:15)
[2017-04-22] MEDS ORDERED: fentaNYL 100 MCG/2 ML INJ ONE (11:15)
[2017-04-22] MEDS ORDERED: MIDAZOLAM 2 MG/2 ML VIAL ONE (11:15)
[2017-04-22] MEDS ORDERED: ATROPINE SULFATE 1 MG/10 ML SYR IVP PRN (12:55)
--- NOTE | 2017-04-22 15:33 | ASMTCASEMG ---
Living Arrangements What is your living Answers: Alone arrangement? Who do you live with? Type Of Residence What kind of residence do Answers: House you live in? Discharge Plan Comments Coordination Status Comments Notes: Pt is a 67 y/o female admitted for unstable angina. Pt will most likely d/c independent when medically stable. No therapies ordered at this time. CM available for changes. Plan: Independent Date Signed: 04/22/2017 03:32 PM Electronically Signed By:CLAUDIA Corral
[2017-04-22 15:43] VITALS: BP 134/79; PULSE 77; RESP 16; TEMP 97.8; O2SAT 99
--- NOTE | 2017-04-22 17:08 | GDS ---
[f rep st] DISCHARGE SUMMARY INDICATION FOR ADMISSION: Chest pressure and shortness of breath. DISCHARGE DIAGNOSES: 1. Shortness of breath and dyspnea on exertion. 2. Essential hypertension. 3. History of atrial tachycardia. 4. Hypothyroidism. 5. Atrial tachycardia. 6. History of seizure disorder. 7. History of subdural hematoma. HOSPITAL COURSE: The patient is a pleasant 67-year-old female, well known to my cardiology practice, who was admitted from Dr. Robles's office yesterday with complaints of increasing shortness of breath, dyspnea on exertion, and exertional left-sided chest discomfort. She underwent serial troponins x3, all of which were negative with values of less than 0.012. N-terminal proBNP was also drawn which was essentially normal at 153. She remained stable throughout her hospitalization with no events on telemetry. On the morning of April 22, 2017, she underwent diagnostic left and right heart catheterization. Please see cardiac catheterization report for full details. Her coronary anatomy was unremarkable with no evidence of coronary artery disease. Right heart catheterization demonstrated normal pulmonary pressures with no evidence of pulmonary hypertension or volume overload. Left ventricular function was normal with LVEDP of 11 mmHg. She tolerated the procedure well. She underwent successful Angio-Seal deployment, and arterial hemostasis was obtained without difficulty. At the time of this documentation, she is resting comfortably. She remained stable on the evening of April 22 for discharge this evening. She will plan to follow up with Dr. Junaid Way as well as Dr. Mark Anthony Robles. PHYSICAL EXAMINATION: VITAL SIGNS: At the time of discharge, blood pressure 134/79, heart rate of 77 in sinus rhythm, respiratory rate of 16, oxygen saturation 99% on 2 L. GENERAL: She is awake, alert, oriented, appropriate, in no apparent distress. NECK: There is no evidence of JVP or carotid bruits. LUNGS: Clear to auscultation bilaterally. CARDIAC: S1, S2. Regular rate and rhythm. No murmurs, rubs, or gallops. EXTREMITIES: There is no evidence of cyanosis, clubbing, or edema. Right groin site is without hematoma or ecchymosis. LABORATORY DATA: Lab work at the time of discharge demonstrates white blood cell count of 5.42, hemoglobin of 13.3, hematocrit of 37.1, platelets 182. Sodium 142, potassium 4.1, chloride 104, bicarb 26, BUN 17, creatinine 1, calcium 9.4, magnesium 2.1. Troponin is less than 0.012 x3. N-terminal proBNP 153. Total cholesterol 228, LDL 149, HDL 64, triglycerides 78. TSH 4.430. MEDICATIONS: At the time of discharge include the followin. Vitamin D3 4000 units daily. 2. Calcium 500 mg b.i.d. 3. Hydrochlorothiazide 12.5 mg p.o. b.i.d. 4. Valium 5 mg daily. 5. Cymbalta 60 mg daily. 6. Omeprazole 40 mg daily. 7. Flovent inhaler p.r.n. 8. Synthroid 88 mcg daily. 9. Diovan 160 mg daily. 10. Keppra 500 mg p.o. b.i.d. 11. Midodrine 2.5 mg p.o. p.r.n. 12. Benadryl 25 mg p.o. p.r.n. ALLERGIES: To medications include cephalosporins, penicillins, and atorvastatin. PLAN: At the time of discharge: 1. The patient will be discharged home. 2. The patient has been given post left and right heart catheterization instructions. 3. The patient will be picked up by her son later this evening. 4. The patient is scheduled to follow up with Dr. Mark Anthony Robles for consideration of atrial tachycardia ablation. 5. Follow up with Dr. Junaid Way of Pulmonary Medicine. 30 min spent coordinating care. /[id number]/MODL MTDD
--- NOTE | 2017-04-22 19:18 | CPIP ---
[f rep st] INVASIVE CARDIAC PROCEDURE DATE OF PROCEDURE: 04/22/2017 PROCEDURE PERFORMED: Left and right heart catheterization. INDICATION FOR PROCEDURE: Ongoing complaints of exertional chest pain, exertional intolerance, dyspn ea on exertion. BRIEF SUMMARY: The patient is a pleasant 67-year-old female with a known history of atrial tachycard ia, who had undergone an ablation last year with Dr. Robles. She had been seen by Dr. Robles in followup for atrial tachycardia when she was complaining of increasing shortness of breath and dyspnea . I had last seen her in the office in February 2017. At that point, she was complaining of shortness of breath and dyspnea. I had recommended an exercise nuclear stress test, which was not ultimately p erformed. With ongoing complaints of shortness of breath, dyspnea, coupled with new complaints of exe rtional left-sided chest discomfort, decision was made to admit her directly from Dr. Robles's office for diagnostic left and right heart catheterization performed today. DESCRIPTION OF PROCEDURE: After consents were obtained for left heart catheterization and right hear t catheterization, the patient was brought to the cardiac catheterization lab, where she was prepped and draped in sterile fashion. Using the modified Seldinger technique with micropuncture technique, a 6-Omani catheter was placed into the right common femoral artery without complications. Using a mod ified Seldinger technique, a 7-Omani sheath was placed into the right common femoral vein without co mplications. Right heart catheterization. After testing Alcova-Roldan catheter with appropriate saline flush and ballo on dilatation, Alcova-Roldan catheter was inserted through the 7-Omani femoral vein sheath. Catheter was advanced to a wedge position. Wedge pressure tracings were obtained. The catheter was then pulled ba ck into the pulmonary artery, at which point pulmonary artery tracings were obtained. Pulmonary arter y saturation was obtained. Catheter was then pulled back into the right ventricle. Right ventricular tracings and pressures were obtained. Right ventricular saturation was obtained. Catheter was then pu lled back into the right atrium where pressures and tracings were obtained. Oxygen saturation was als o obtained from the right atrium, as well as the inferior vena cava. After saturations were obtained, an aortic saturation was also obtained. The balloon was deflated, and the Alcova-Roldan catheter was rem tonya without complications. After completion of right heart catheterization, attention was placed to the left heart catheterizati on. JL4-5 catheter was used to take images of the left coronary anatomy in multiple projections. The JL4-5 catheter was exchanged over a guidewire for a JR4 catheter. The JR4 catheter was used to take i mages of the coronary artery in multiple projections. The JR4 catheter was exchanged over a guidewire for an angled pigtail catheter. Angled pigtail catheter was used to cross the aortic soni ve. Left ventriculogram was performed. LVEDP was assessed, and aortic valve gradient was assessed on pull-back. Left heart catheterization findings. Left main normal size and caliber, bifurcates into left anterior descending and left circumflex coronary artery. There is no evidence of coronary disease within the left main. Left anterior descending artery gives rise to a moderate-sized first diagonal branch. Ther e are multiple septal perforators. There is no evidence of coronary disease or in the diagonal branch . Circumflex coronary artery gives rise to a small first and second obtuse marginal branch, and a mod erate-sized 3rd obtuse marginal branch. There is no evidence of coronary disease within the obtuse ma rginal branches or the circumflex vessel. The right coronary artery is a dominant vessel that bifurcates into PDA and PLV. There is no evidence of coronary disease within the right coronary artery. Hemodynamics. LVEDP 12 mmHg. Aortic valve gradient none. Right heart catheterization hemodynamics. Pulmonary capillary wedge pressure 10 mmHg. Pulmonary arter y pressure 31/12 with a mean of 19 mmHg. Right ventricular pressure 27/2 with a mean of 17 mmHg. Righ t atrial pressure 6 mmHg with average of 1 mmHg. Oxygen saturations pulmonary artery saturation 82.7%. RV saturation 83%. RA pressure 82.9%. Aortic sa turation 99.4%. Cardiac output via Judy method 6.25 L/minute. Cardiac index 3.13 L/minute/m2. CONCLUSIONS: 1. Normal coronary arteries. 2. Normal left ventricular function. 3. Normal right heart catheterization hemodynamics. PLAN: 1. The patient will return to the [facility] for post left and right heart catheterization followup. 2. Would recommend outpatient pulmonary medicine consultation for further evaluation of her symptoms . /[id number]/MODL
[2017-04-22] MEDS ORDERED: DIAZEPAM 5 MG TAB PO SCH (21:00)
--- NOTE | 2017-04-23 10:16 | ASDISCHSUM ---
Discharge Information Plan Status:Home with No Needs Medically Cleared to Leave:04/21/2017 Discharge Date:04/22/2017 05:35 PM CM D/C Disposition: ADT D/C Disposition:Home, Routine, Self-Care Projected Discharge Date:04/22/2017 12:00 AM Transportation at D/C: Discharge Delay Reason: Follow-Up Date:04/22/2017 12:00 AM Discharge Slot: Final Diagnosis: Placement Information Patient Contact Information Contact Name:JOAQUIM Relationship:Daughter Address: Work Phone: City:[place] Alternate Phone: State/[place] Code:[place] Email: Financial Information Financial Class: Primary Plan Desc:MEDICARE OUTPATIENT Primary Plan Number:[id number] Secondary Plan Desc:[employer] PPO Secondary Plan Number:[id number] Assessment Information [facility] Initial CM Assessment Living Arrangements What is your living Answers: Alone arrangement? Who do you live with? Type Of Residence What kind of residence do Answers: House you live in? Discharge Plan Comments Coordination Status Comments Notes: Pt is a 67 y/o female admitted for unstable angina. Pt will most likely d/c independent when medically stable. No therapies ordered at this time. CM available for changes. Plan: Independent Date Signed: 04/22/2017 03:32 PM Electronically Signed By:CLAUDIA Corral Intervention Information
== END 2017-04-22 17:35 | disposition home or self-care (01) ==
LOC: F2W 17:00
PROVIDERS: ADMIT Internal Medicine Cardiovascular Disease; ATTEND Internal Medicine Cardiovascular Disease
PROC: 4A023N8 Measurement of Cardiac Sampling and Pressure, Bilateral, Percutaneous Approach (ICD-10-PCS; principal; 2017-04-22)
PROC: B2151ZZ Fluoroscopy of Left Heart using Low Osmolar Contrast (ICD-10-PCS; principal; 2017-04-22)
PROC: B2111ZZ Fluoroscopy of Multiple Coronary Arteries using Low Osmolar Contrast (ICD-10-PCS; principal; 2017-04-22)
DX: R06.02 Shortness of breath (principal); R07.89 Other chest pain; R00.2 Palpitations; I10 Essential (primary) hypertension; I47.1 Supraventricular tachycardia; E03.9 Hypothyroidism, unspecified; G40.909 Epilepsy, unspecified, not intractable, without status epilepticus; G47.33 Obstructive sleep apnea (adult) (pediatric); Z79.01 Long term (current) use of anticoagulants; Z86.711 Personal history of pulmonary embolism; Z87.891 Personal history of nicotine dependence
CPT/HCPCS: 71046; 93005; 93460; C1760; G0378; G0379; J1644; J2250; J3010; Q9967

== ENCOUNTER → 2017-04-30 | Outpatient (CLI) | payer OTHER | LOC: BMCIMAGING 08:41 | PROVIDERS: ATTEND Internal Medicine | DX: Z12.31 Encounter for screening mammogram for malignant neoplasm of breast (principal) ==

== ENCOUNTER 2017-05-18 11:12 | Observation (INO) | payer OTHER ==
[2017-05-18] MEDS ORDERED: NS 1,000 ML IV ONE (11:16)
--- NOTE | 2017-05-18 11:43 | CPEKG ---
Heart Rate: 80 RR Interval: 750 P-R Interval: 168 QRSD Interval: 82 QT Interval: 412 QTC Interval: 476 P [place]: 37 QRS [place]: -16 T Wave [place]: 34 EKG Severity - OTHERWISE NORMAL ECG - EKG Impression: SINUS RHYTHM EKG Impression: BORDERLINE LEFT AXIS DEVIATION Electronically Signed By: Hamilton Davenport 18-May-2017 14:50:40
--- NOTE | 2017-05-18 11:44 | PDGENHP ---
History & Physical Chief Complaint: AT History of Present Illness: AT, prior ablation, recurrence Relevant Physical Exam: s1s2 rrr cta ao3 Cardiorespiratory Assessment: AT, plan ablation.
[2017-05-18] MEDS ORDERED: HEPARIN 10,000 UNIT/10 ML MDV (1,000 UNIT/ML) ONE (11:48)
[2017-05-18] MEDS ORDERED: LIDOCAINE 1% 300 MG/30 ML SDV ONE (11:48)
[2017-05-18] MEDS ORDERED: BUPIVACAINE 0.5% 10 ML SDV ONE (11:48)
[2017-05-18] MEDS ORDERED: ISOPROTERENOL HCL/D5W 0.2 MG/50 ML BAG IV ONE ×2 (11:49→14:09)
[2017-05-18 12:00] LABS: PLATELET COUNT 165 10^3/uL (150-400)
[2017-05-18 12:06] LABS: INR 0.91 (0.83-1.16); PROTIME(PATIENT) 12.5 SEC (12.0-15.0)
--- NOTE | 2017-05-18 12:19 | PDANEPAE ---
ANE Past Medical History - Cardiovascular History Hx Hypertension: Yes Hx Arrhythmias: No Hx Chest Pain: No Hx Coronary Artery / Peripheral Vascular Disease: No Hx CHF / Valvular Disease: Yes Hx Palpitations: Yes Cardiovascular History Comment: Occ. hypotension-syncope 04/25/14. Benign heart murmur. - Pulmonary History Hx COPD: No Hx Asthma/Reactive Airway Disease: No Hx Recent Upper Respiratory Infection: No Hx Oxygen in Use at Home: No Hx Sleep Apnea: Yes Pulmonary History Comment: SOB. CPAP @ night - Neurologic History Hx Cerebrovascular Accident: No Hx Seizures: No Hx Dementia: No Neurologic History Comment: L leg weakness may be due to 3 bulging discs in spine. - Endocrine History Hx Diabetes: Yes Endocrine History Comment: Pre Diabetic. Hypothyroidism - Renal History Hx Renal Disorders: No Renal History Comment: Caretaker follows pt for low functioning kidneys. - Liver History Hx Hepatic Disorders: No Hepatic History Comment: Hemangioma - Neurological & Psychiatric Hx Hx Neurological and Psychiatric Disorders: Yes Neurological / Psychiatric History Comment: Depression - Cancer History Hx Cancer: No - Congenital Disorder History Hx Congenital Disorders: No - GI History Hx Gastrointestinal Disorders: Yes Gastrointestinal History Comment: GERD - Other Health History Other Health History: Propheria, Polymylasia - Chronic Pain History Chronic Pain: Yes (shoulders and back.) - Surgical History Prior Surgeries: 1963-3 surgeries on R femur. 1979-remove R femur hardware. 1995 -total hysterectomy. 2000-GB removed. 2000-fudiplication. 2006-2 surg L foot, 1 surg R foot. 2014-R hand trigger finger ANE Review of Systems Review of Systems: - Exercise capacity Exercise capacity: limited by disability ANE Patient History - Allergies Allergies/Adverse Reactions: Cephalosporins Allergy (Intermediate, Verified 01/21/17 10:39) Rash Penicillins Allergy (Intermediate, Verified 01/21/17 10:39) Rash atorvastatin Allergy (Verified 05/11/17 09:41) HEADACHE - Home Medications Home Medications: DULoxetine [Cymbalta 60 MG (*)] 60 mg PO DAILY 11/07/15 [Last Taken 04/20/17] Diazepam [Valium 5 MG (*)] 5 mg PO SUTUTH@21 11/07/15 [Last Taken 04/20/17] Hydrochlorothiazide [HCTZ (*)] 12.5 mg PO DAILY 11/07/15 [Last Taken 04/21/17] Levothyroxine [Synthroid 88 mcg (*)] 88 mcg PO SUTUWETHFRSA@06 11/07/15 [Last Taken 04/21/17] Omeprazole [Prilosec 20 mg] 40 mg PO DAILY 11/07/15 [Last Taken 3 Days Ago ~] Valsartan [Diovan (*)] 160 mg PO DAILY 11/07/15 [Last Taken 04/21/17] Cholecalciferol Vit D3 [Vitamin D3 (*)] 4,000 units PO DAILY 01/15/16 [Last Taken 04/20/17] Herbals/Supplements -Info Only 1 ea PO DAILY 01/15/16 [Last Taken 04/21/17] Vitamin B Complex [B Complex] 1 each PO DAILY 01/15/16 [Last Taken 04/21/17] Calcium Carbonate [Oyster Shell Calcium 500 mg (*)] 500 mg PO BID 02/08/16 [ Last Taken 04/20/17] Fluticasone Hfa 220 Mcg [Flovent 220 MCG Hfa MDI (*)] 2 puffs IH BID 02/08/16 [ Last Taken 04/21/17 09:00] Ibuprofen [Motrin (*)] 200 mg PO DAILY PRN 11/26/16 [Last Taken 5 Days Ago ~] Midodrine HCl 2.5 mg PO DAILY PRN 11/26/16 [Last Taken Unknown] diphenhydrAMINE [Benadryl 25 MG (*)] 25 mg PO DAILY PRN 01/28/17 [Last Taken 1 Month Ago ~03/21/17] levETIRAcetam [Keppra 500 mg (*)] 500 mg PO BID 01/28/17 [Last Taken 05/18/17 10 :00] Memantine HCl [Namenda 5 mg (*)] 5 mg PO HS 05/11/17 [Last Taken Unknown] - Anes Hx Anes Hx: no prior problems - Smoking Hx Smoking Status: Former smoker - Family Anes Hx Family Hx Anesthesia Complications: no ANE Labs/Vital Signs - Labs Result Diagrams: 05/18/17 11:50 05/18/17 11:50 - Vital Signs Height: 170.18 cm Weight: 88.451 kg ANE Physical Exam - Airway Mouth exam: normal dental/mouth exam - Pulmonary Pulmonary: no respiratory distress, no rales or rhonchi, clear to auscultation - Cardiovascular Cardiovascular: regular rate and rhythym, no murmur, rub, or gallop - ASA Status ASA Status: III ANE Anesthesia Plan Anesthesia Plan: general endotracheal anesthesia
[2017-05-18] MEDS ORDERED: PROPOFOL/EMULSION 500 MG/50 ML BOTTLE IV ONE ×3 (12:25→13:13)
[2017-05-18] MEDS ORDERED: ROCURONIUM 50 MG/5 ML VIAL ONE ×2 (13:33)
[2017-05-18] MEDS ORDERED: PROPOFOL 200 MG/20 ML VIAL ONE (14:48)
[2017-05-18] MEDS ORDERED: SUGAMMADEX SODIUM 200 MG/2 ML VIAL IVP ONE (15:00)
[2017-05-18] MEDS ORDERED: ONDANSETRON 4 MG/2 ML VIAL IVP PRN (15:01)
[2017-05-18] MEDS ORDERED: NALOXONE HCL 0.4 MG/ML INJ IVP PRN (15:01)
[2017-05-18] MEDS ORDERED: PROMETHAZINE HCL 25 MG/ML INJ IVP PRN (15:01)
[2017-05-18] MEDS ORDERED: HYDROCODONE/APAP 5/325 TAB PO PRN (15:01)
[2017-05-18] MEDS ORDERED: fentaNYL 100 MCG/2 ML INJ IVP PRN (15:01)
[2017-05-18] MEDS ORDERED: DEXAMETHASONE 4 MG/ML VIAL IVP PRN (15:01)
[2017-05-18] MEDS ORDERED: MIDODRINE HCL 2.5 MG PO PRN (15:13)
--- NOTE | 2017-05-18 15:19 | EPPROC ---
Electrophysiology Procedure Note: ELECTROPHYSIOLOGIC STUDY AND CATHETER MEDIATED ABLATION OF FOCAL ATRIAL TACHYCARDIA x 3 Foci PROCEDURES PERFORMED: 1. EP evaluation with RA/RV/LA pace/record, with arrhythmia induction 2. EP evaluation with RA/RV pace record, insert/reposition catheter, with arrhythmia induction 3. Intracardiac catheter ablation, SVT arrhythmogenic focus 4. Second arrhythmia 4. 3D mapping 5. Fluoroscopy INDICATION: Prior ablation of atrial tachycardia at our institution, recurrence of symptoms and documentation of SVT lasting for up to 11 minutes on monitoring. Catheters and anesthesia: The patient arrived in the Electrophysiology Laboratory in the fasting state. The right clavicular region, right groin, and left groin area were prepped and draped in the usual sterile manner. Anesthesiologist Dr. Fernando Coelho administered general anesthesia. Appropriate non-invasive blood pressure, pulse oximetry and end-tidal CO2 monitoring was established. All catheters were placed percutaneously using the modified Seldinger technique , and advanced into position under fluoroscopic guidance. One #7 Swazi deflectable octapolar electrode catheter was advanced to the His-bundle position via the left femoral vein (2mm spacing; except the proximal ring which was 25cm from the tip used for unipolar recordings). This was later placed into the coronary sinus. Deloris catheter was placed along the Deloris terminalis via left femoral vein. Programmed stimulation was performed from the right atrium, left atrium ( coronary sinus) and right ventricle. Parahisian pacing demonstrated all retrograde conduction over the AV node Heparin was administered to keep ACT > 200 seconds. Programmed stimulation of right atrium during infusion of isoproterenol 1-2 mcg/ min induced an atrial tachycardia. High resolution mapping of the atrial tachycardia was done using Pentaray catheter. Following this, a #7 Swazi mapping catheter was introduced into the right atrium and used for mapping AT . SR0 sheath was used. A 3D mapping system ([employer]) was used. A detailed 3D map of the right atrium and coronary sinus showed earliest atrial activation along the lateral aspect of the superior Deloris terminalis. Ablation at this site terminated atrial tachycardia , cycle length 380 milliseconds. Atrial tachycardia, cycle length 420 milliseconds was induced. This was ablated slightly inferior and more septal to the site of the 1st atrial tachycardia. Atrial tachycardia cycle length 480 milliseconds was induced. This was ablated posterior to the site of atrial tachycardia cycle length 420 milliseconds. High output pacing was performed at each site prior to ablation, no phrenic nerve stimulation was noted. Programmed stimulation in the baseline state and during infusion of isoproterenol 1, 2 mcg/min post ablation was performed. No tachycardia could be induced. The catheters were removed. Sheaths were removed in the EP lab after applying subcutaneous purse string suture. The patient was transferred to the cardiovascular holding area in stable condition. There were no apparent complications. CONCLUSIONS: 1. Focal atrial tachycardia , 3 separate foci, arising along the superior aspect of the Deloris terminalis. 2. Successful ablation of focal atrial tachycardias. 3. No apparent complications. Patient Problems: Problems Problem Status Onset Hyperparathyroidism Chronic Pulmonary embolus Chronic Subdural hemorrhage Acute Hypertension Acute Headache Acute Chest pain Acute Syncope Acute Tachypnea Acute Anxiety Acute
--- NOTE | 2017-05-18 15:19 | POSTANESTH ---
Post Anesthetic Evaluation Cardiovascular Status: Normal, Stable, Similar to Pre-Op Cond Respiratory Status: Normal, Stable, Similar to Pre-op Cond. Level of Consciousness/Mental Status: Can Participate in Eval, Moderately Sleepy Pain Control: Adequate, Prn Tx Ordered Nausea/Vomiting Control: Adequate, Prn Tx Ordered Complications Possibly Related to Anesthesia: None Noted
--- NOTE | 2017-05-18 15:30 | CPEKG ---
Heart Rate: 86 RR Interval: 698 P-R Interval: 188 QRSD Interval: 80 QT Interval: 412 QTC Interval: 493 P [place]: 54 QRS [place]: 9 T Wave [place]: 44 EKG Severity - BORDERLINE ECG - EKG Impression: SINUS RHYTHM EKG Impression: BORDERLINE PROLONGED QT INTERVAL Electronically Signed By: Hamilton Davenport 18-May-2017 16:37:22
[2017-05-18] MEDS ORDERED: MIDODRINE HCL 5 MG TAB PO PRN (16:16)
[2017-05-18] MEDS: levETIRAcetam 500 MG TAB PO SCH (20:48)
[2017-05-18] MEDS ORDERED: MEMANTINE HCL 5 MG TAB PO SCH (21:00)
[2017-05-18] MEDS ORDERED: DIAZEPAM 5 MG TAB PO SCH (21:00)
[2017-05-18] MEDS: FLUTICASONE HFA 220 MCG MDI IH SCH (21:08)
[2017-05-19 04:14] VITALS: TEMP 98.1
[2017-05-19 04:17] LABS: PLATELET COUNT 150 10^3/uL (150-400)
[2017-05-19 04:44] LABS: CREATINE KINASE 66 IU/L (0-156)
[2017-05-19] MEDS ORDERED: LEVOTHYROXINE 88 MCG TAB PO SCH (06:00)
[2017-05-19 07:46] VITALS: BP 127/89; PULSE 94; RESP 12; O2SAT 93
[2017-05-19] MEDS: levETIRAcetam 500 MG TAB PO SCH (08:00)
--- NOTE | 2017-05-19 08:57 | CPEKG ---
Heart Rate: 78 RR Interval: 769 P-R Interval: 180 QRSD Interval: 78 QT Interval: 416 QTC Interval: 474 P [place]: 9 QRS [place]: -16 T Wave [place]: 49 EKG Severity - OTHERWISE NORMAL ECG - EKG Impression: SINUS RHYTHM EKG Impression: BORDERLINE LEFT AXIS DEVIATION Electronically Signed By: Hamilton Davenport 19-May-2017 09:07:03
[2017-05-19] MEDS ORDERED: ASPIRIN 81 MG CHEWABLE TAB PO SCH (09:00)
[2017-05-19] MEDS ORDERED: VALSARTAN 160 MG TAB PO SCH (09:00)
[2017-05-19] MEDS ORDERED: DULoxetine 60 MG CAP PO SCH (09:00)
[2017-05-19] MEDS ORDERED: NON-FORMULARY NEW DRUG (Omeprazole [Prilosec 20 Mg] 40 MG) PO SCH (09:00)
[2017-05-19] MEDS ORDERED: HYDROCHLOROTHIAZIDE 12.5 MG CAP PO SCH (09:00)
[2017-05-19] MEDS ORDERED: PANTOPRAZOLE SODIUM 40 MG TAB PO SCH (09:00)
[2017-05-19] MEDS ORDERED: POTASSIUM CL 20 MEQ TAB PO ONE (09:32)
[2017-05-19] MEDS: FLUTICASONE HFA 220 MCG MDI IH SCH (09:35)
[2017-05-19] MEDS ORDERED: FLUTICASONE HFA 220 MCG MDI IH SCH (10:00)
--- NOTE | 2017-05-19 10:38 | ECHO ---
[email or web address] [address] [address] Main: [phone] Fax: Transthoracic Echocardiogram Name: VELASQUEZ WARD MR#: [id number] Study Date: 05/19/2017 Study Time: 08:38 AM Date of : 1950 Age: 67 year(s) Height: 170.2 cm (67 in.) Weight: 88.45 kg (195 lb.) BSA: 2 m2 Gender: Female Examination: Echo Indication: Post EP Image Quality: Contrast: Requested by: Mark Anthony Robles BP: 127 mmHg/89 mmHg Heart Rate: Rhythm: Tachycardia Indication: Post EP Procedure Staff Frame Sample And Pattern Supervisor: Dionte Chang RDCS Reading Physician: Reinier Sanchez MD Requesting Provider: Conclusions: Normal size left ventricle. No LV hypertrophy. Normal global systolic LV function. EF is 63 %. No regional wall motion abnormality. Diastolic dysfunction is present. . Normal RV function. Trivial mitral valve regurgitation. The aortic valve is tri-leaflet and functions normally. The tricuspid valve is normal in appearance and function. Measurements: Chambers Valvular Assessment AV/MV Valvular Assessment TV/PV Normal Normal Normal Name Value Range Name Value Range Name Value Range Ao Ayla (MM): 2.9 cm (2.2 cm-3.7 AV Vmax: 1.64 m/s (1 m/s-1.7 PV Vmax: 1.00 m/s (0.6 m/s-0.9 cm) m/s) m/s) IVSd (2D): 0.9 cm (0.6 cm-1.1 AV maxP mmHg ( - ) PV PGmax: 4 mmHg ( - ) cm) LVOT Vmax: 1.05 m/s (0.7 m/s-1.1 LVDd (2D): 4.0 cm (3.9 cm-5.3 m/s) cm) MV E Vmax: 0.88 m/s ( - ) LVDs (2D): 2.6 cm (2.1 cm-4 MV A Vmax: 1.06 m/s ( - ) cm) MV E/A: 0.83 ( - ) LVPWd (2D): 1.0 cm ( - ) LVEF (2D): 63 (>=54 %) Continued Measurements: Chambers Valvular Assessment AV/MV Patient: VELASQUEZ WARD Study Date: 05/19/2017 Page 1 of 2 08:38 AM Name Value Name Value LADs Lon.1 cm MV E' Septal: 0.07 m/s LA Area: 16.0 cm2 MV E/E' Septal: 12.70 MV E/E' Lateral: 11.40 Findings: Left Ventricle: Normal size left ventricle. No LV hypertrophy. Normal global systolic LV function. EF is 63 %. No regional wall motion abnormality. Diastolic dysfunction is present. . Right Ventricle: Normal size right ventricle. Normal RV function. Left Atrium: The left atrium is normal in size. Right Atrium: The right atrium is normal in size. Mitral Valve: The mitral valve is normal in appearance and function. Trivial mitral valve regurgitation. Aortic Valve: The aortic valve is tri-leaflet and functions normally. Tricuspid Valve: The tricuspid valve is normal in appearance and function. Pulmonic Valve: The pulmonic valve is normal in appearance and function. Aorta: The aorta is normal. Pericardium: No pericardial effusion. (No Signature Object) Patient: VELASQUEZ WARD Study Date: 05/19/2017 Page 2 of 2 08:38 AM [id number]
--- NOTE | 2017-05-19 13:09 | GDS ---
[f rep st] DISCHARGE SUMMARY ADMISSION DIAGNOSES: 1. Atrial tachycardia. 2. Essential hypertension. 3. Hypothyroidism. 4. History of seizure disorder. 5. History of subdural hematoma. DISCHARGE DIAGNOSES: 1. Atrial tachycardia. 2. Status post electrophysiology procedure with atrial tachycardia ablation. 3. Essential hypertension. 4. Hypothyroidism. 5. History of seizure disorder. 6. History of subdural hematoma. PROCEDURES PERFORMED DURING HOSPITALIZATION: 1. Electrocardiogram. 2. Electrophysiology study. 3. Successful ablation of 3 separate foci for atrial tachycardia. 4. Echocardiogram. BRIEF HISTORY: Please see H and P. The patient is a 67-year-old female with significant past histor y of atrial tachycardia. She has been having more episodes. She has a past history of previous abla tion, and unfortunately, she has had more episodes of atrial tachycardia. She was seen by reilly Jacobsen valukendall, and felt to be appropriate candidate for undergoing ablation procedure. HOSPITAL COURSE: Patient was admitted through CVC, prepped for procedure, and taken to the electroph ysiology lab. There, Dr. Robles performed EP procedure, identifying 3 separate foci arising along the s uperior aspect of the Deloris terminalis, causing atrial tachycardia. At that point, ablation was per formed to the areas with no apparent complication. The patient was transferred back to the CVC and u ltimately to the PCU overnight. The patient reports no chest pain or shortness of breath throughout the evening. On continuous cardiac monitoring, it was noted there were additional small brief runs o f atrial tachycardia with rates less than 100 beats per minute. She denies any significant shortness of breath. Her vital signs have been stable. She has been up and walking in the unit without diffi culties and reporting no symptoms of palpitations. PHYSICAL EXAMINATION: GENERAL: Today, general assessment, a medium built, mildly obese fe male. She is alert and oriented to person, place, time, and situation. Appears to be under no acute distress. VITAL SIGNS: Current vital signs are blood pressure of 127/89, heart rate 94, sinus rhyt hm while on the monitor. Respirations 12, saturating 93% on room air, temperature of 36.7 degrees Ce lsius. HEENT: Head is normocephalic. Lips and tongue are pink and moist, with no signs of cyanosis . Conjunctivae pink. NECK: Trachea is midline, +2 carotid pulses bilateral. No auscultated bruits , no jugular vein distention. RESPIRATORY: Lungs clear to auscultation, no rhonchi, rales or wheeze s. No accessory muscle use. No intercostal muscle retraction. CARDIAC: Regular rate, regular rhyt hm, S1, S2, no S3, S4, gallops, rubs or murmurs noted. ABDOMEN: Soft, nontender, bowel sounds x4 qu adrants. No organomegaly. No palpable masses. SKIN: [place], warm, dry, no cyanosis, no clubbing, no peripheral edema. VASCULAR: +2 radials bilateral, +2 carotids bilateral, +1 posterior tibial pulse s bilateral. Catheter insertion site, bilateral groin sites, with no redness, swelling, drainage, ec chymosis, or hematoma. No auscultated bruit noted over either site. LABORATORY STUDIES: Laboratory studies drawn today, WBC of 5.67, hemoglobin 12.5, hematocrit 35.1, p latelet count of 150, sodium 138, potassium 3.4, chloride 109, CO2 of 22, BUN 15, creatinine 0.9, glu cose 105, calcium 8.4, magnesium 2.0, CK of 66, CK-MB fraction 1.09, troponin of 0.076. No expected elevated cardiac enzymes status post ablation. STUDIES: EP procedure and ablation as mentioned above. Electrocardiogram done today showing sinus r hythm, left axis deviation, no significant ST or T-wave abnormalities suggesting ischemia. Prelimina ry results of a.m. echocardiogram showing normal LV systolic function with no wall motion abnormaliti es, normal ejection fraction, no pericardial effusion. DISCHARGE DISPOSITION: Patient will be discharged home in stable condition. She is under activity r estrictions of not lifting more than 10 pounds in the next day and no strenuous activity for the next 2 days. DISCHARGE MEDICATIONS: Please see discharge medication reconciliation sheet. Note, patient has been started on 81 mg aspirin daily, which she will take for the next 6 weeks, and she will be sent home with a prescription for diltiazem 120 mg p.o. daily. DISCHARGE INSTRUCTIONS: Post atrial tachycardia ablation discharge instructions went over with the renae newberry and her daughter, including activity restrictions, bathing precautions, bleeding precautions, medication compliance. The patient has a followup appointment scheduled with Dr. Robles in 1 months' ti me, sooner if necessary. Patient will also follow up with her primary form coverer, Dr. Migel Camargo. The patient has been told that if any problems or concerns post discharge, they are to notify our of fice or return to the hospital. Total time spent on discharge greater than 30 minutes. /[id number]/MODL
== END 2017-05-19 11:17 | disposition home or self-care (01) ==
LOC: FCATH 11:12 → F2W 15:08
PROVIDERS: ADMIT Internal Medicine Cardiovascular Disease; ATTEND Internal Medicine Cardiovascular Disease
DX: I47.1 Supraventricular tachycardia (principal); I10 Essential (primary) hypertension; G47.33 Obstructive sleep apnea (adult) (pediatric); E03.9 Hypothyroidism, unspecified; G40.909 Epilepsy, unspecified, not intractable, without status epilepticus; R73.03 Prediabetes; K21.9 Gastro-esophageal reflux disease without esophagitis; Z79.01 Long term (current) use of anticoagulants; Z87.891 Personal history of nicotine dependence; Z86.711 Personal history of pulmonary embolism; Z88.0 Allergy status to penicillin
CPT/HCPCS: 93005; 93306; 93613; 93621; 93623; 93653; 93655; C1731; C1732; C1893; J1644; J2704

== ENCOUNTER → 2017-05-31 | Outpatient (CLI) | payer OTHER | LOC: BMCIMAGING 10:07 | PROVIDERS: ATTEND Internal Medicine Endocrinology, Diabetes & Metabolism | DX: Z13.820 Encounter for screening for osteoporosis (principal); M85.89 Other specified disorders of bone density and structure, multiple sites ==

== ENCOUNTER → 2017-08-10 | Outpatient (CLI) | payer OTHER | LOC: BMCIMAGING 13:48 | PROVIDERS: ATTEND Physician Assistant | DX: M75.32 Calcific tendinitis of left shoulder (principal) ==

== ENCOUNTER 2017-08-21 09:43 | Emergency (ER) | payer OTHER ==
--- NOTE | 2017-08-21 09:52 | EDPHY ---
H & P Time Seen by Provider: 08/21/17 09:49 HPI/ROS: CHIEF COMPLAINT: Left-sided chest pain HISTORY OF PRESENT ILLNESS: The patient presents to the ED with complaints of left-sided chest pain for the past several days. Her symptoms began after a fall. She has sharp pain below her left breast that is worsened with inspiration. The patient does have a prior history of an unprovoked PE. She was taken off her anticoagulation secondary to a spontaneous subdural hematoma. The patient denies any asymmetric calf pain or swelling. She denies any acute abdominal pain. She has no complaints of an acute headache or midline neck pain. The patient states her left-sided chest pain is moderate and worsened with palpation. REVIEW OF SYSTEMS: A comprehensive 10 point review of systems is otherwise negative aside from elements mentioned in the history of present illness. Source: Patient Exam Limitations: No limitations - Personal History Tetanus Vaccine Date: 2010 - Medical/Surgical History Hx Asthma: No Hx Chronic Respiratory Disease: No Hx Diabetes: Yes Hx Cardiac Disease: No Hx Renal Disease: Yes Hx Cirrhosis: No Hx Alcoholism: No Hx HIV/AIDS: No Hx Splenectomy or Spleen Trauma: No Other PMH: porphyria, hypoglycemia, pre-diabetes, polymylasia, GERD, HTN, SOB, CPAP at night, depression, hypothyroidism, thyroid sx, PE's 2014, SDH, afib, cerebral hemorag 2015. ? seizures - Social History Smoking Status: Former smoker - Physical Exam Exam: General Appearance: Alert, no distress Head: Atraumatic Eyes: Pupils equal, round, reactive ENT, Mouth: No hemotympanum, no oral trauma Neck: Nontender, trachea midline Respiratory: Tenderness to palpation left anterior chest wall, no subcutaneous emphysema Cardiovascular: Regular rate and rhythm Abdomen: Abdomen is soft and nontender, pelvis stable Skin: No lacerations, No abrasion Back: No midline T/L/S pain Extremities: Nontender, full range of motion Constitutional: Initial Vital Signs Temperature (C) 36.7 C 08/21/17 09:54 Heart Rate 86 08/21/17 09:54 Respiratory Rate 22 H 08/21/17 09:54 Blood Pressure 138/88 H 08/21/17 09:54 O2 Sat (%) 98 08/21/17 09:54 O2 Delivery Mode Room Air Allergies/Adverse Reactions: Cephalosporins Allergy (Intermediate, Verified 01/21/17 10:39) Rash Penicillins Allergy (Intermediate, Verified 01/21/17 10:39) Rash atorvastatin Allergy (Verified 05/11/17 09:41) HEADACHE Home Medications: Medication Instructions Recorded DULoxetine [Cymbalta 60 MG (*)] 60 mg PO DAILY 11/07/15 Diazepam [Valium 5 MG (*)] 5 mg PO SUTUTH@21 11/07/15 Hydrochlorothiazide [HCTZ (*)] 12.5 mg PO DAILY 11/07/15 Levothyroxine [Synthroid 88 mcg 88 mcg PO SUTUWETHFRSA@06 11/07/15 (*)] Omeprazole [Prilosec 20 mg] 40 mg PO DAILY 11/07/15 Valsartan [Diovan (*)] 160 mg PO DAILY 11/07/15 Cholecalciferol Vit D3 [Vitamin D3 4,000 units PO DAILY 01/15/16 (*)] Herbals/Supplements -Info Only 1 ea PO DAILY 01/15/16 Vitamin B Complex [B Complex] 1 each PO DAILY 01/15/16 Calcium Carbonate [Oyster Shell 500 mg PO BID 02/08/16 Calcium 500 mg (*)] Fluticasone Hfa 220 Mcg [Flovent 2 puffs IH BID 02/08/16 220 MCG Hfa MDI (*)] Ibuprofen [Motrin (*)] 200 mg PO DAILY PRN 11/26/16 Midodrine HCl 2.5 mg PO DAILY PRN 11/26/16 diphenhydrAMINE [Benadryl 25 MG 25 mg PO DAILY PRN 01/28/17 (*)] levETIRAcetam [Keppra 500 mg (*)] 500 mg PO BID 01/28/17 Memantine HCl [Namenda 5 mg (*)] 5 mg PO HS 05/11/17 Aspirin [Aspirin 81mg (*)] 81 mg PO DAILY tab.chew 05/19/17 Diltiazem HCl [Diltiazem ER] 120 mg PO DAILY #30 cap.er.deg 05/19/17 Medical Decision Making - Diagnostics Imaging Results: Imaging Impressions Chest/Thorax CTA 08/21/17 10:53 Impression: No evidence for pulmonary embolic disease. Results called and discussed with Hi Guerra, at 08/21/2017 11:32 General information for patients regarding this examination can be found at [email or web address]. If you have questions or comments about this report, please contact me at (hospital) or [phone] (cell). ED Course/Re-evaluation: The patient presents to the ED for evaluation of left-sided chest pain in the setting of a recent fall and history of prior pulmonary embolism. The patient had very reproducible point tenderness on exam. She did have a pleuritic component of chest pain as well. The patient's vital signs are stable. Her EKG demonstrates no evidence of ischemia and her troponin is normal. The patient was taken for CT scan of the chest which demonstrates no evidence of a rib fracture, pulmonary embolism, pneumothorax or sternal fracture. The patient has been informed that she likely is having musculoskeletal pain from a fall. She is advised to use Tylenol and ibuprofen as needed for her symptoms. The patient will also be given a prescription for lidocaine patches. The patient is advised to return to the ED for any markedly worsening symptoms or other concerns. The patient's pain is clearly reproducible and not consistent with ACS. Differential Diagnosis: Differential diagnosis considered includes pulmonary embolism, rib fracture, sternal fracture, mediastinal hematoma, pneumothorax - Data Points Laboratory Results: Laboratory Results 08/21/17 10:10 08/21/17 10:10 08/21/17 08/21/17 08/21/17 10:29 10:10 10:10 WBC 5.27 10^3/uL 10^3/uL (3.80-9.50) RBC 4.08 10^6/uL L 10^6/uL (4.18-5.33) Hgb 12.9 g/dL g/dL (12.6-16.3) Hct 35.9 % L % (38.0-47.0) MCV 88.0 fL fL (81.5-99.8) MCH 31.6 pg pg (27.9-34.1) MCHC 35.9 g/dL g/dL (32.4-36.7) RDW 13.5 % % (11.5-15.2) Plt Count 174 10^3/uL 10^3/uL (150-400) MPV 10.4 fL fL (8.7-11.7) Neut % (Auto) 54.0 % % (39.3-74.2) Lymph % (Auto) 35.1 % % (15.0-45.0) [place] % (Auto) 7.6 % % (4.5-13.0) Eos % (Auto) 2.1 % % (0.6-7.6) Baso % (Auto) 0.6 % % (0.3-1.7) Nucleat RBC Rel Count 0.0 % % (0.0-0.2) Absolute Neuts (auto) 2.85 10^3/uL 10^3/uL (1.70-6.50) Absolute Lymphs (auto) 1.85 10^3/uL 10^3/uL (1.00-3.00) Absolute Monos (auto) 0.40 10^3/uL 10^3/uL (0.30-0.80) Absolute Eos (auto) 0.11 10^3/uL 10^3/uL (0.03-0.40) Absolute Basos (auto) 0.03 10^3/uL 10^3/uL (0.02-0.10) Absolute Nucleated RBC 0.00 10^3/uL 10^3/uL (0-0.01) Immature Gran % 0.6 % % (0.0-1.1) Immature Gran # 0.03 10^3/uL 10^3/uL (0.00-0.10) Sodium 135 mEq/L mEq/L (135-145) Potassium 3.0 mEq/L L mEq/L (3.3-5.0) Chloride 97 mEq/L mEq/L (97-110) Carbon Dioxide 24 mEq/l mEq/l (22-31) Anion Gap 14 mEq/L mEq/L (8-16) BUN 17 mg/dL mg/dL (7-23) Creatinine 1.0 mg/dL mg/dL (0.6-1.0) Estimated GFR 55 Glucose 94 mg/dL mg/dL (70-100) Calcium 8.4 mg/dL L mg/dL (8.5-10.4) POC Troponin I 0.00 ng/mL ng/mL (0.00-0.08) Point of Care Test Results: Chemistry 08/21/17 10:29 POC Troponin I 0.00 ng/mL ng/mL (0.00-0.08) Departure - Departure Disposition: Home, Routine, Self-Care Clinical Impression: Chest wall pain Condition: Good Instructions: Chest Wall Pain (ED) Additional Instructions: 1. Take Ibuprofen or Motrin 600 mg by mouth three times a day. 2. Tylenol 650 mg every 6 hr for pain. 3. The testing done in the emergency department today demonstrates no significant abnormalities. Please return to the ED immediately for any markedly worsening symptoms or other concerns. Referrals: Leonarda Santana MD [[facility] [place] - As per Instructions
--- NOTE | 2017-08-21 10:03 | CPEKG ---
Heart Rate: 67 RR Interval: 896 QRSD Interval: 92 QT Interval: 452 QTC Interval: 478 QRS [place]: 4 T Wave [place]: 53 EKG Severity - ABNORMAL ECG - EKG Impression: SINUS RHYTHM Electronically Signed By: Hi Guerra 21-Aug-2017 13:03:06
[2017-08-21 10:28] LABS: PLATELET COUNT 174 10^3/uL (150-400)
[2017-08-21] MEDS ORDERED: IOPAMIDOL (ISOVUE 370) 100 ML BTL IV ONE (10:58)
[2017-08-21 11:53] VITALS: BP 112/78
--- NOTE | 2017-08-24 07:49 | CPEKG ---
Heart Rate: 69 RR Interval: 870 P-R Interval: 153 QRSD Interval: 80 QT Interval: 460 QTC Interval: 493 P Tomball: 45 QRS Tomball: -1 T Wave Tomball: 61 EKG Severity - BORDERLINE ECG - EKG Impression: SINUS RHYTHM Electronically Signed For: Hi Guerra 24-Aug-2017 07:50:10
== END 2017-08-21 12:08 | disposition home or self-care (01) ==
LOC: EDUNIT#
DX: R07.89 Other chest pain (principal); E11.9 Type 2 diabetes mellitus without complications; I10 Essential (primary) hypertension; Z79.82 Long term (current) use of aspirin; Z87.891 Personal history of nicotine dependence
CPT/HCPCS: 71275; 93005; 99285; Q9967; 84484-PO

== ENCOUNTER → 2018-06-07 | Outpatient (CLI) | payer OTHER | LOC: BMCIMAGING 08:24 | PROVIDERS: ATTEND Internal Medicine | DX: Z12.31 Encounter for screening mammogram for malignant neoplasm of breast (principal) ==

== ENCOUNTER 2018-08-19 08:36 | Observation (INO) | payer OTHER ==
[2018-08-19] MEDS ORDERED: NS 500 ML IV ONE (08:44)
--- NOTE | 2018-08-19 10:10 | EDPHY ---
H & P Time Seen by Provider: 08/19/18 08:43 HPI/ROS: HPI Lightheaded. Almost fainted. 68-year-old female by ambulance from the [facility]. This patient was on a 12 hr fast. She went to the [facility] this morning to have blood drawn. She reports she felt fine last night. She reports that she noticed that her blood pressure was on the low side with a systolic of 103 this morning. She reports that when she got to the [facility], she felt unusually lightheaded with a sensation of black and in tunneling vision. She was able to get her blood drawn. She was able to get up and get a out to the waiting room but her symptoms worsened when she was in the waiting room and she was not able to ambulate. She does ambulate with a cane secondary to chronic left-sided upper and lower extremity weakness from prior cerebral hemorrhages. She denies headache. She denies any new loss of sensation or weakness. She denies any vertigo. She was accompanied with her daughter. They went into the [facility] to be evaluated and were quickly transferred here to the emergency department. She is feeling better now that she is laying flat. She had a sensation of numbness and tingling in her bilateral upper and lower extremities. This has resolved. She was given some crackers and juice at the urgent care as well. ROS: Constitutional: No fever, no chills. As above. Eyes: No discharge. As above. ENT: No sore throat. No nasal congestion or rhinorrhea. Respiratory: No cough. No shortness of breath. Cardiac: No chest pain, no palpitations. Gastrointestinal: No abdominal pain, no vomiting, no diarrhea. Genitourinary: No hematuria. No dysuria or increased frequency with urination. Musculoskeletal: No back pain. No neck pain. No myalgias or arthralgias. Skin: No rashes. Neurological: No headache. No focal weakness or altered sensation. As above. Past medical history: Prior history of cerebral hemorrhages in 2014. She was on Coumadin at that time for pulmonary embolism. She has not been on Coumadin since November of last year. She also tells me that she was Plavix for period of time but was taken off of that about a week ago. She currently has a loop monitor. Porphyria, hypoglycemia, pre diabetes, GERD, hypertension, sleep apnea with CPAP, depression, hypothyroid, atrial fibrillation, seizures, as above. She ambulates with a cane secondary to chronic left upper and lower extremity weakness from her cerebral hemorrhages in 2015. Social history: She is currently here with her daughter. No alcohol. Nonsmoker. Physical Exam: General Appearance: Alert, no distress. This patient is responding to questions appropriately and in full sentences. This patient appears well- hydrated and well-nourished. Head: Normocephalic atraumatic. Eyes: Pupils equal and round no pallor or injection. No lid edema, erythema or injection. ENT, Mouth: Mucous membranes are moist. The pharyngeal tissues are unremarkable. No edema or swelling. No asymmetry suggestive of abscess. No erythema or exudates. Respiratory: There are no retractions, lungs are clear to auscultation anteriorly with good air movement bilaterally. Cardiovascular: Regular rate and rhythm. No murmur. Gastrointestinal: Abdomen is soft and nontender, no masses, bowel sounds normal. No focal tenderness at McBurney's point. No Diaz sign. Neurological: Motor sensory function is grossly intact except for residual mild left upper and lower extremity weakness. Cranial nerves are normal. Cerebellar function is normal. Skin: Warm and dry, no rashes. Musculoskeletal: Neck is supple and nontender. No pain on flexion of her neck. Extremities are symmetrical. All joints range without pain or impingement. Psychiatric: No agitation. No depression. Database: EKG: EKG time is 8:59 a.m.; EKG shows a narrow complex normal sinus rhythm with a ventricular rate of 72. Borderline left axis deviation noted. The RI, QRS, QT intervals are within normal limits. There are no ST-T wave changes indicative of ischemic or injury pattern. No evidence of right heart strain. No evidence of WPW, Brugada syndrome, hypertrophic cardiomyopathy. Interpreted by me. Imaging: CT head without contrast: No acute pathology. Results were discussed with staff radiologist Dr. Junaid Barrett. Procedures: Emergency department course: Triage vital signs reviewed and are normal. IV was placed at the [facility]. She was placed on a potline monitor. She was started on IV normal saline with 500 cc to be given over the next hour. EKG obtained and reviewed by myself. 11:00 a.m., the patient was re-evaluated, resting comfortably at this time. teletypesetter monitor shows a narrow complex sinus rhythm with ventricular rate of 73. Blood pressure is currently 112/75. Results of diagnostics testing discussed with her and her daughter. Plan for admission discussed. Patient endorses. All of her questions were answered. 11:05 a.m., spoke with on-call hospitalist, patient admitted to telemetry observation under Dr. Iniguez in stable condition. Differential Diagnosis: The differential diagnosis on this patient includes but is not limited to dehydration, hypoglycemia, vasovagal reaction. Arrhythmia, acute coronary syndrome, CVA unlikely. This represents a partial list of diagnoses considered. These considerations are based on history, physical exam, past history, reassessment and diagnostic testing. Smoking Status: Former smoker Constitutional: Initial Vital Signs Temperature (C) 36.7 C 08/19/18 08:43 Heart Rate 80 08/19/18 08:43 Respiratory Rate 16 08/19/18 08:43 Blood Pressure 118/85 H 08/19/18 08:43 O2 Sat (%) 99 08/19/18 08:43 O2 Delivery Mode Room Air Allergies/Adverse Reactions: Cephalosporins Allergy (Intermediate, Verified 01/21/17 10:39) Rash Penicillins Allergy (Intermediate, Verified 01/21/17 10:39) Rash atorvastatin Allergy (Verified 05/11/17 09:41) HEADACHE Home Medications: Medication Instructions Recorded DULoxetine [Cymbalta 60 MG (*)] 60 mg PO DAILY 11/07/15 Diazepam [Valium 5 MG (*)] 5 mg PO SUTUTH@11/07/15 Hydrochlorothiazide [HCTZ (*)] 12.5 mg PO DAILY 11/07/15 Levothyroxine [Synthroid 88 mcg 88 mcg PO SUTUWETHFRSA@06 11/07/15 (*)] Omeprazole [Prilosec 20 mg] 40 mg PO DAILY 11/07/15 Valsartan [Diovan (*)] 160 mg PO DAILY 11/07/15 Cholecalciferol Vit D3 [Vitamin D3 4,000 units PO DAILY 01/15/16 (*)] Herbals/Supplements -Info Only 1 ea PO DAILY 01/15/16 Vitamin B Complex [B Complex] 1 each PO DAILY 01/15/16 Calcium Carbonate [Oyster Shell 500 mg PO BID 02/08/16 Calcium 500 mg (*)] Fluticasone Hfa 220 Mcg [Flovent 2 puffs IH BID 02/08/16 220 MCG Hfa MDI (*)] Ibuprofen [Motrin (*)] 200 mg PO DAILY PRN 11/26/16 Midodrine HCl 2.5 mg PO DAILY PRN 11/26/16 diphenhydrAMINE [Benadryl 25 MG 25 mg PO DAILY PRN 01/28/17 (*)] levETIRAcetam [Keppra 500 mg (*)] 500 mg PO BID 01/28/17 Memantine HCl [Namenda 5 mg (*)] 5 mg PO HS 05/11/17 Aspirin [Aspirin 81mg (*)] 81 mg PO DAILY tab.chew 05/19/17 Diltiazem HCl [Diltiazem ER] 120 mg PO DAILY #30 cap.er.deg 05/19/17 Medical Decision Making - Diagnostics Imaging Results: Imaging Impressions Head CT 08/19/18 10:00 Impression: No acute intracranial findings. Radha Orr was notified of these findings by telephone at 10:32 AM on 08/19/2018 - Data Points Laboratory Results: Laboratory Results 08/19/18 09:20 08/19/18 08/19/18 09:25 09:20 Sodium 137 mEq/L mEq/L (135-145) Potassium 4.8 mEq/L mEq/L (3.5-5.2) Chloride 110 mEq/L mEq/L (97-110) Carbon Dioxide 20 mEq/l L mEq/l (22-31) Anion Gap 7 mEq/L mEq/L (6-14) BUN 18 mg/dL mg/dL (7-23) Creatinine 1.0 mg/dL mg/dL (0.6-1.0) Estimated GFR 55 Glucose 95 mg/dL mg/dL (70-100) Calcium 8.6 mg/dL mg/dL (8.5-10.4) POC Troponin I 0.01 ng/mL ng/mL (0.00-0.08) Medications Given: Discontinued Medications Sodium Chloride (Ns) 500 mls @ 1,000 mls/hr IV EDNOW ONE PRN Reason: Protocol Stop: 08/19/18 09:13 Last Admin: 08/19/18 08:53 Dose: 500 mls Point of Care Test Results: Chemistry 08/19/18 09:25 POC Troponin I 0.01 ng/mL ng/mL (0.00-0.08) Departure - Departure Disposition: [facility] Acute Clinical Impression: Near syncope Referrals: Leonarda Santana MD [Primary Care Provider] - As per Instructions
[2018-08-19] MEDS ORDERED: ACETAMINOPHEN 325 MG TAB PO PRN (11:54)
[2018-08-19] MEDS ORDERED: NS W/ 20 KCl/L 1,000 ML IV SCH (12:00)
[2018-08-19 12:37] LABS: PLATELET COUNT 225 10^3/uL (150-400)
[2018-08-19 12:46] LABS: INR 1.07 (0.83-1.16); PROTIME(PATIENT) 13.5 SEC (12.0-15.0)
--- NOTE | 2018-08-19 15:34 | CPEKG ---
Test Reason : OPEN Blood Pressure : / mmHG Vent. Rate : 072 BPM Atrial Rate : 072 BPM P-R Int : 168 ms QRS Dur : 088 ms QT Int : 432 ms P-R-T Axes : 024 -26 050 degrees QTc Int : 473 ms Sinus rhythm Borderline left axis deviation Confirmed by Radha Lockwood ([id number]) on 08/19/2018 3:33:19 PM Referred By: Radha Lockwood Confirmed By:Radha Lockwood
[2018-08-19] MEDS ORDERED: FLUTICASONE NASAL 120 SPRAYS/16 GM MDI EACHNARE PRN (17:06)
--- NOTE | 2018-08-19 19:43 | GHP ---
[f rep st] HISTORY AND PHYSICAL DATE OF ADMISSION: 08/19/2018 CHIEF COMPLAINT: Lightheadedness. HISTORY OF PRESENT ILLNESS: The patient is a 68-year-old female with a past medical history of atria l fibrillation and hypertension, who presented to the [facility] via EMS after episod e of lightheadedness while she was giving blood in anticipation of a routine annual visit. The patie nt reports that she has a history of intermittent low blood pressures, which she treats with midodrin e on an as-needed basis. She is also concurrently treated for hypertension and is currently on dilti azem and losartan. She did not have access to her midodrine as she was at the [facility] lab. S he was evaluated in the emergency room, and her metabolic panel was within normal limits, and her hem oglobin was mildly low compared to her baseline of 12 to 13 at 10.4. Throughout the afternoon, the n verónicae reported that the patient had a formed bowel movement, but it appeared to be surrounded by dark blood. Hemoccult was sent and was positive. A repeat hemoglobin was obtained this evening, which sparks d decreased to 8.8. I reviewed the case with Dr. Grace with Gastroenterology. The patient reports t hat she had a colonoscopy done approximately 1 week ago and had a biopsy and polyp removal performed. She states she had been off Plavix for at least 7 days prior to the colonoscopy. She had been on a spirin and Plavix. She had a Watchman procedure performed in January of last year. Records of her recent colonoscopy as well as endoscopy, which she states she had about 3 weeks ago, have been reques danii from [facility] in [place]. In reviewing the case with Gastroenterology, th e challenge this week is that apparently the staffing is not available for colonoscopy or endoscopy. PAST MEDICAL HISTORY: Seizure disorder, history of cerebral hemorrhage, history of pulmonary embolis m with course of Coumadin being completed last November, atrial fibrillation, hypertension, obstruct maryam sleep apnea, hypothyroidism, and depression. PAST SURGICAL HISTORY: Cardiac ablation by Dr. Robles. MEDICATIONS: Home medication list includes aspirin 81 mg daily, budesonide/formoterol 2 puffs twice a day, diltiazem ER 120 mg daily, Cymbalta 90 mg daily, flecainide 100 mg twice a day, gabapentin 200 mg 3 times a day, levothyroxine 75 mcg daily, losartan 100 mg daily, Namenda 100 mg twice a day, mid odrine 2.5 mg daily as needed, omeprazole 40 mg daily, potassium chloride 20 mEq twice a day. ALLERGIES: Cephalosporins, penicillins, albuterol, atorvastatin. FAMILY HISTORY: The patient is adopted and has unknown family history. SOCIAL HISTORY: Patient . She has a daughter. Nonsmoker. REVIEW OF SYSTEMS: CONSTITUTIONAL: No complaints of any fevers or chills. ENT: No recent upper re spiratory illnesses. CARDIOVASCULAR: No complaints of any chest pains, palpitations. No syncope, b ut lightheadedness. RESPIRATORY: No complaints of shortness of breath or productive cough. GI: No focal abdominal pain, nausea, vomiting, diarrhea, or constipation. Positive for bloody stool report ed by nurse. : No difficulty with urination. NEUROLOGIC: No complaints of any headaches or foca l weakness. HEMATOLOGIC: No history of any bleeding complications or hemarthrosis, but positive for history of 1 pulmonary embolism in her lifetime. PSYCHIATRIC: Positive for depression. ENDOCRINE: No history of polyuria or heat intolerance. SKIN: No new skin rashes or bruising. PHYSICAL EXAM: VITAL SIGNS: Temperature 36.4, blood pressure 125/69, heart rate 81, respirations 18 , satting 100% on room air. GENERAL: Patient appears comfortable. She is awake, alert, conversant, no acute distress. HEENT: Extraocular movements appear intact. No scleral icterus. NECK: Supple . No adenopathy appreciated. CHEST: Normal respiratory effort. HEART: Regular rate and rhythm. No murmurs noted. ABDOMEN: Soft, nontender, nondistended. : No Branham catheter in place. EXTREM ITIES: No significant pitting edema. NEUROLOGIC: Cranial nerves 2-12 appear grossly intact with 5/ 5 strength in extremities. LABS: White blood cell count 4, hemoglobin 10.4, platelets 225. Sodium 137, potassium 4.8, chloride 110, bicarb 20, BUN 18, creatinine 1.0, glucose 95. Hemoccult positive. INR 1.0. CT of the head n egative. ASSESSMENT/PLAN: Presyncope. I do not suspect this was a vasovagal episode as her symptoms develope d prior to going in for her blood draw. She states she noted the symptoms as she was walking into [facility] lab. She does have a history of blood pressure drops for which she takes midodrine as needed. She , however, did have the formed bowel movement which was blood tinged today, which brings concern of p otential gastrointestinal bleeding. She did have a recent colonoscopy as well, where she had a polyp removed in biopsy. She has had a drop in her hemoglobin from 10.4 to 8.8 throughout the day today. This may be somewhat dilutional, so I am going to hold intravenous fluids overnight. I reviewed the case with Dr. Grace with Gastroenterology today and should she have further gastrointestinal bleedin g or progressing anemia, then we may have to give consideration to [facility] as [facility] is an issue, to have endoscopy and colonoscopy done over this weekend. Atrial fibrillation. The patient has been on aspirin and diltiazem. Continue diltiazem for rate con trol. Hold aspirin in light of concern for gastrointestinal bleed. Patient had a Watchman procedure performed in January of last year. She was on aspirin and Plavix up until about 2 weeks ago. Hypertension. Hold losartan while monitoring overnight. Obstructive sleep apnea. Confirm if patient is on CPAP therapy. History of pulmonary embolism. Patient completed a 6-month course of anticoagulation, but has not sparks d any recurrent thrombosis. Hypothyroidism. Levothyroxine. Depression. Continue Cymbalta. Deep venous thrombosis prophylaxis: Compression devices. No heparin or Lovenox in light of report o f bloody stools. Disposition: Observation. /[id number]/MODL
[2018-08-19] MEDS ORDERED: BUDESONIDE/FORMOTEROL 160/4.5 60 PUFFS/MDI IH SCH (21:00)
[2018-08-19] MEDS ORDERED: AZELASTINE NASAL MDI EACHNARE SCH (21:00)
[2018-08-19] MEDS ORDERED: FAMOTIDINE 20 MG TAB PO SCH (21:00)
[2018-08-19] MEDS ORDERED: FLECAINIDE ACETATE 100 MG TAB PO SCH (21:00)
--- NOTE | 2018-08-19 21:54 | PDDCSUM ---
Discharge Summary Discharge Summary: Date of Admission: 08/19/2018 Date of Transfer: 08/19/2018 Studies: head CT Disposition: transfer to [facility] for endoscopic procedure Discharge Diagnoses: 1. Lower GI bleed 2. Acute blood loss anemia 3. Atrial tachycardia/fibrillation 4. Hypertension 5. History of pulmonary embolus 6. Obstructive sleep apnea 7. Hypothyroidism 8. Depression 9. History of cerebral hemorrhage while on anticoagulation Brief Hospital Course: Ms Martinez is a very pleasant 68yo F with a history of atrial tachycardia/ fibrillation, cerebral hemorrhage while on anticoagulation for pulmonary embolus presented with rather acute onset of presyncopal symptoms. Evaluation revealed anemia. After admission to the medical floor, she had 3 large bloody bowel movements. She then had 2 additional bowel movements that were darker in color. She was mildly tachycardic with HR briefly in the 100s but normal BP. She denies abdominal pain. GI was consulted. Unfortunately, due to technical issues they are unable to perform any endoscopic procedures currently. After discussion with patient, decision was made to transfer to [facility] as she has had prior care there. She was transfused 2 units PRBCs prior to transfer and was hemodynamically stable. The on-call physician accepted her for transfer. Of note, the patient just recently had endoscopic evaluation of her GI tract. She had an EGD about a month ago where she reports a gastric ulcer was clipped. She then had a colonoscopy on 08/10/[address] Hoa Bowser at [facility] where she had a polypectomy and some diverticuli were noted, per patient report. I do not have access to these records. I suspect her present bleed is either related to bleeding polypectomy site vs diverticular in nature. Medications: Please refer to EMR for complete list. Physical Exam: Vitals reviewed, as above. Alert and oriented, tachycardic, no murmur, lungs clear, abdomen soft and nontender, no bruising or rashes, no edema. I spent a total of 50 minutes of care involving this patient.
[2018-08-19] MEDS ORDERED: GABAPENTIN 100 MG CAP PO SCH (22:00)
[2018-08-20 03:52] VITALS: BP 122/72
[2018-08-20] MEDS ORDERED: LEVOTHYROXINE 75 MCG TAB PO SCH (06:00)
[2018-08-20] MEDS ORDERED: DILTIAZEM CD 120 MG CAP PO SCH (06:00)
[2018-08-20] MEDS ORDERED: DULoxetine 30 MG CAP PO SCH (09:00)
[2018-08-20] MEDS ORDERED: PANTOPRAZOLE SODIUM 40 MG TAB PO SCH (09:00)
[2018-08-20] MEDS ORDERED: MIDODRINE HCL 5 MG TAB PO PRN (09:00)
== END 2018-08-20 04:00 | disposition short-term general hospital (02) ==
LOC: EDUNIT# → F3E 13:15
PROVIDERS: ADMIT Internal Medicine; ATTEND Internal Medicine
PROC: 30233N1 Transfusion of Nonautologous Red Blood Cells into Peripheral Vein, Percutaneous Approach (ICD-10-PCS; principal; 2018-08-19)
DX: K92.1 Melena (principal); D62 Acute posthemorrhagic anemia; I69.154 Hemiplegia and hemiparesis following nontraumatic intracerebral hemorrhage affecting left non-dominant side; Z86.711 Personal history of pulmonary embolism; I10 Essential (primary) hypertension; G47.33 Obstructive sleep apnea (adult) (pediatric); E03.9 Hypothyroidism, unspecified; F32.9 Major depressive disorder, single episode, unspecified
CPT/HCPCS: 70450; 93005; 99285; G0378; P9016; 84484-ER

== ENCOUNTER 2018-08-25 13:35 | Inpatient (IN) | payer OTHER | END 2018-08-27 11:28 | disposition home or self-care (01) | LOC: F3E 15:58 ==

== ENCOUNTER → 2018-09-12 | Outpatient (CLI) | payer OTHER | LOC: FIMAGING 09:41 ==

== ENCOUNTER → 2018-09-13 | Outpatient (CLI) | payer OTHER | LOC: FIMAGING 11:12 ==